=== PATIENT | female | born 1990 | race Hispanic/Latino ===

== ENCOUNTER → 2017-10-25 10:22 | Outpatient (CLI) | payer BC, SELFPAY ==
[2017-10-25 12:03] LABS: Free T3 2.3 pg/mL (2.18-3.98); T4 Free Direct 0.96 ng/dL (0.76-1.46)
[2017-10-25 13:37] LABS: Chlamydia Trachomatis by PCR Negative (Negative); Neisserai gonorrhoeae by PCR Negative (Negative); Probe Check PASS; Sample Adequacy Control PASS; Specimen Processing Control PASS
[2017-10-28 11:39] LABS: HPV Reflexed? NOT INDICATED
== END ==
PROVIDERS: Visit Provider Obstetrics & Gynecology
DX: Z11.3 Encounter for screening for infections with a predominantly sexual mode of transmission (principal); E03.9 Hypothyroidism, unspecified; R39.15 Urgency of urination
CPT/HCPCS: 36415; 84439; 84443; 84481; 87086; 87491; 87591; 88175; G0145

== ENCOUNTER → 2018-12-22 14:30 | Outpatient (CLI) | payer BC, SELFPAY ==
[2016-02-02 03:26] VITALS: BMI 21.4
[2018-12-22 16:08] LABS: Free T3 2.7 pg/mL (2.18-3.98); T4 Free Direct 0.93 ng/dL (0.76-1.46); Thyroid Stim Hormone (TSH) 1.35 uIU/mL (0.358-3.74)
[2018-12-27 13:05] LABS: HPV Reflexed? NOT INDICATED
== END ==
PROVIDERS: Visit Provider Obstetrics & Gynecology
DX: E03.9 Hypothyroidism, unspecified (principal); Z12.4 Encounter for screening for malignant neoplasm of cervix
CPT/HCPCS: 84439; 84443; 84481; 88175; G0145

== ENCOUNTER → 2020-01-02 16:21 | Outpatient (CLI) | payer BC, SELFPAY ==
[2016-02-02 03:26] VITALS: BMI 21.4
[2020-01-02 17:47] LABS: Free T3 2.2 pg/mL (2.18-3.98); Thyroid Stim Hormone (TSH) 1.43 uIU/mL (0.358-3.74)
== END ==
PROVIDERS: Visit Provider Obstetrics & Gynecology
DX: E03.9 Hypothyroidism, unspecified (principal)
CPT/HCPCS: 36415; 84439; 84443; 84481

== ENCOUNTER → 2020-12-31 10:14 | Outpatient (CLI) | payer BC, SELFPAY ==
[2020-12-31 13:45] LABS: Free T3 2.4 pg/mL (2.18-3.98); T4 Free Direct 0.84 ng/dL (0.76-1.46)
== END ==
PROVIDERS: Visit Provider Obstetrics & Gynecology
DX: E03.8 Other specified hypothyroidism (principal); E28.9 Ovarian dysfunction, unspecified
CPT/HCPCS: 36415; 84144; 84439; 84443; 84481

== ENCOUNTER → 2021-02-25 | Outpatient (CLI) | payer BC, SELFPAY | END | disposition home or self-care (01) | LOC: WOBLAB 12:59 | PROVIDERS: Visit Provider Obstetrics & Gynecology | DX: O03.4 Incomplete spontaneous abortion without complication (principal) | CPT/HCPCS: 36415; 86850; 86900; 86901 ==

== ENCOUNTER 2021-12-24 08:38 | Emergency (ER) | payer BC, SELFPAY ==
[2021-12-24 08:39] VITALS: BP 122/52; PULSE 79; RESP 17; TEMP 36.2; O2SAT 97; BMI 27.6
--- NOTE | 2021-12-24 09:30 | CT_ITS ---
STUDY: CT ABDOMEN AND PELVIS WITHOUT CONTRAST REASON FOR EXAM: Female, 31 years old. 3 week history of right lower quadrant and abdominal pain. Nausea. RADIATION DOSAGE (If Supplied By Facility): CTDIvol = ( 7.03 ) mGy, DLP = ( 344.32 ) mGycm TECHNIQUE: Transaxial images were obtained from the dome of the diaphragm to the symphysis pubis without oral contrast, and without intravenous contrast. Sagittal and coronal images were reconstructed. Individualized dose optimization techniques were used for this CT. COMPARISON: None. FINDINGS: The visualized lung bases are unremarkable. The visualized portions of the heart are within normal limits. Normal liver. Normal gallbladder and extrahepatic biliary system. Normal spleen. Normal pancreas. Normal bilateral adrenal glands. Punctate calculus in the upper pole calyx of the right kidney. Normal left kidney. Normal visualized stomach. Normal small intestine. Normal colon. The appendix is visualized and appears normal. Normal abdominal aorta. Normal inferior vena cava. Normal retroperitoneum. Normal urinary bladder. Normal abdominal wall. Normal osseous structures. CT/Abdomen/Pelvis without Cont IMPRESSION: Normal unenhanced CT of the abdomen and pelvis. Electronically Signed: Chad Gunter MD at 10:51 EDT ,
--- NOTE | 2021-12-24 09:30 | ED.VIS.GI ---
HPI HPI - GI History of Present Illness Chief Complaint: Abd Pain Detail of Chief Complaint: Abdominal pain x3 weeks Informant: patient Abdominal Pain/Flank Pain Maximum Severity: 10 Narrative Narrative: Patient presents to the emergency department complaint of abdominal pain for the last 3 weeks. Patient states that she was in [place] 3 weeks ago and developed some bladder discomfort and was seen by a physician there and had a urinalysis and culture which were both negative. Patient continues to have pain and at times wakes up with the urge to urinate. Patient takes ibuprofen and seems to help the pain. Her last menstrual period was 3 days ago. Patient is G2, P0. Patient has had 2 miscarriages. Patient does not think she is . Patient does not have history of kidney stones or ovarian cyst as far she knows. Denies abnormal vaginal discharge or bleeding. Prior similar symptoms: No PFSH PFSH Medical History no medical history Home Medications levothyroxine 25 mcg tablet 37.5 mcg PO DAILY 01/04/16 [History Last Taken Unknown] ondansetron 4 mg disintegrating tablet 4 mg PO Q8H PRN PRN Nausea #10 tabs 02/02/16 [Rx Last Taken Unknown] phenazopyridine 200 mg tablet (Pyridium) 200 mg PO TID #6 tabs 02/02/16 [Rx Last Taken Unknown] sulfamethoxazole 800 mg-trimethoprim 160 mg tablet 1 tab PO BID ##6 02/02/16 [Rx Last Taken Unknown] hydrocodone-acetaminophen 5-325mg 5mg-325mg 1 tab PO Q4H PRN PRN Pain 2 days #10 TABLETS 12/24/21 [Rx Last Taken Unknown] Allergy/AdvReac Type Severity Reaction Status Date / Time No Known Allergies Allergy Verified 12/24/21 08:38 Family History no significant family his Surgical History no surgical history Social History Smoking Status: Never smoker ROS ROS ED Review of Systems ROS Unobtainable: other Constitutional Constitutional ED: Reports lethargy; Denies chills, fever(s), sweats or weight loss Eyes Eyes: Denies blurry vision, change in vision or diplopia ENT ENT ED: Denies rhinorrhea or sore throat Cardiovascular Cardiovascular: Reports racing heartbeat; Denies chest pain, orthopnea or palpitations Respiratory/Chest Respiratory/Chest: Denies cough, dyspnea, dyspnea on exertion, orthopnea or sputum Gastrointestinal Gastrointestinal: Reports abdominal pain and nausea; Denies diarrhea or vomiting Genitourinary Genitourinary ED: Denies dysuria, hematuria or urinary frequency Musculoskeletal Musculoskeletal: Denies arthralgias, back pain, myalgias or neck pain Integumentary Denies abscess, Abrasions or rash Neurologic Neurologic: Denies headache(s) or weakness Psychiatric Psychiatric: Denies anxiety, depression or suicidal thoughts Endocrine Endocrinology: Denies polydipsia, polyphagia or polyuria Hematologic/Lymphatic Hematologic/Lymphatic: Denies easy bleeding, easy bruising or lymphadenopathy Allergic/Immunologic Allergic/Immunologic ED: Denies mouth swelling, tongue swelling or urticaria EXAM Physical Exam Const Vital Signs: 12/24/21 08:39 Temperature 97.1 F L Temperature Source Temporal Pulse Rate 79 Respiratory Rate 17 Blood Pressure 122/52 H Blood Pressure Mean 75 Pulse Ox 97 Oxygen Delivery Method Room Air Positive well nourished and well developed General Appearance ED: well developed and NAD HEENT Reports TM's clear and moist mucous membranes normocephalic and atraumatic; Negative for trauma or tenderness Tympanic Membrane ED: Yes TM's clear Eyes PERRL and EOMs intact bilaterally General Eye ED: Negative for pale conjunctiva or scleral icterus Neck no lymphadenopathy, supple and no JVD General: Negative for tenderness Chest Wall inspection of chest normal and palpation of chest normal Chest: Negative for tenderness Resp normal respiratory effort and clear to auscultation bilaterally Effort and Inspection: Negative for respiratory distress or pain with movement Auscultation: Negative for rhonchi, wheezes or diminished lung sounds Cardio regular rate, regular rhythm, S1 normal heart sound, S2 normal heart sound and no murmurs Peripheral Pulses: pulses 2+ throughout GI normal to inspection, nondistended, normoactive bowel sounds, soft to palpation, non-distended and no masses GI Narrative: Tender to palpation to the right lower quadrant. There are some guarding. There is no rebound, rigidity, or peritoneal signs. No masses palpated. Back/Spine no CVA tenderness and no thoracic nor lumbar tenderness Extremity normal to inspection General Extremety ED: Negative for edema General Extremity: Negative for edema Neuro oriented x3, CN's II-XII intact bilaterally, no sensory deficits noted and gait normal Sensorium / Orientation: awake, alert, oriented to person, oriented to place and oriented to time Motor Exam: strength 5/5 throughout and strength abnormal Psych mental status grossly normal Skin no rashes or lesions noted and no wounds MDM MDM MDM Narrative Medical decision making narrative: IV line established on arrival. Patient did not anything for pain. Lab work-up was normal. hCG was negative. CT flank was essentially normal. At this point etiology of her pain is unclear and she has had it for 3 weeks continuously. My suspicion is extremely low for torsion of the ovaries. I had discussion with patient about obtaining a pelvic ultrasound to evaluate the ovaries and uterus further. Patient states that she has an appointment with [facility] in 2 weeks and does not want to wait to have an ultrasound but would prefer to follow-up with them. I think this is reasonable. I will also give her referral to urology as she has had some urinary related like symptoms. Patient given a prescription for Morgan for pain. She is advised to return if worsening pain, fever, vomiting, or condition worsen anyway. Lab Data Attestation: I reviewed the patient's lab results. Labs: Laboratory Results - last 24 hr 12/24/21 12/24/21 12/24/21 09:38 09:38 09:38 WBC 5.6 RBC 4.29 Hgb 13.2 Hct 39.9 MCV 93.0 MCH 30.8 MCHC 33.1 RDW Std Deviation 44.1 H RDW Coeff of Jennifer 12.9 Plt Count 248 MPV 9.4 Immature Gran % (Auto) 0.700 Neut % (Auto) 63.0 Lymph % (Auto) 27.5 Preston % (Auto) 6.0 Eos % (Auto) 2.1 Baso % (Auto) 0.7 Absolute Neuts (auto) 3.6 Absolute Lymphs (auto) 1.55 Nucleated RBC % 0 Sodium 141 Potassium 4.2 Chloride 109 H Carbon Dioxide 27.0 Anion Gap 5 BUN 8 Creatinine 0.69 Estim Creat Clear Calc 102.01 Est GFR (MDRD) Af Amer 127 Est GFR (MDRD) Non-Af 105 BUN/Creatinine Ratio 11.6 Glucose 82 Calcium 8.6 Total Bilirubin 0.50 AST 23 ALT 39 Alkaline Phosphatase 64 Total Protein 7.2 Albumin 3.5 Globulin 3.7 Albumin/Globulin Ratio 0.9 Serum , Qual NEGATIVE Urine Color Urine Clarity Urine pH Ur Specific [place] Urine Protein Urine Glucose (UA) Urine Ketones Urine Occult Blood Urine Nitrite Urine Bilirubin Urine Urobilinogen Ur Leukocyte Esterase Urine RBC Urine WBC Ur Squamous Epith Cells Urine Bacteria Urine Mucus 12/24/21 09:38 WBC RBC Hgb Hct MCV MCH MCHC RDW Std Deviation RDW Coeff of Jennifer Plt Count MPV Immature Gran % (Auto) Neut % (Auto) Lymph % (Auto) Preston % (Auto) Eos % (Auto) Baso % (Auto) Absolute Neuts (auto) Absolute Lymphs (auto) Nucleated RBC % Sodium Potassium Chloride Carbon Dioxide Anion Gap BUN Creatinine Estim Creat Clear Calc Est GFR (MDRD) Af Amer Est GFR (MDRD) Non-Af BUN/Creatinine Ratio Glucose Calcium Total Bilirubin AST ALT Alkaline Phosphatase Total Protein Albumin Globulin Albumin/Globulin Ratio Serum , Qual Urine Color Yellow Urine Clarity Clear Urine pH 7.0 Ur Specific [place] 1.010 Urine Protein Negative Urine Glucose (UA) Normal Urine Ketones Negative Urine Occult Blood Negative Urine Nitrite Negative Urine Bilirubin Negative Urine Urobilinogen Normal Ur Leukocyte Esterase Negative Urine RBC 0 SEEN Urine WBC 0 SEEN Ur Squamous Epith Cells 0-5 SEEN Urine Bacteria 0 SEEN Urine Mucus 0 SEEN Radiography Diagnostic Testing: Clinical Impression(s) from Imaging Studies Abdomen/Pelvis CT 12/24/21 09:30 IMPRESSION: Normal unenhanced CT of the abdomen and pelvis. Electronically Signed: Chad Gunter MD at 10:51 EDT , Discharge Plan Triage Chief Complaint: Abd Pain ED Provider: Tameka Rapp Dx/Rx/DC Orders Clinical Impression: Abdominal pain Instructions: ED Abdominal Pain Unkn Cause Fem Prescriptions: New hydrocodone-acetaminophen [hydrocodone-acetaminophen] 5-325 mg tablet 1 tab PO Q4H PRN PRN (Reason: Pain) 2 Days Qty: 10 0RF No Action levothyroxine 25 MCG tablet 37.5 mcg PO DAILY phenazopyridine [Pyridium] 200 MG tablet 200 mg PO TID Qty: 6 0RF sulfamethoxazole-trimethoprim 1 TABLET tablet 1 tab PO BID Qty: 6 0RF ondansetron 4 MG tablet 4 mg PO Q8H PRN PRN (Reason: Nausea) Qty: 10 0RF Primary Care Provider: Joseph Neville Referrals: Lee Ann Pimentel MD [Med Staff - Active Staff] - 3-5 Days Joseph Neville MD [Primary Care Provider] - Disposition Disposition: Home, Self Care
[2021-12-24] MEDS: 0.9% Normal Saline 1,000 ML 125 ML IV (09:46)
[2021-12-24 09:51] LABS: Bacteria 0 SEEN /hpf (None Seen); Mucous, Urine 0 SEEN /hpf (<or=2+); Red Blood Cells-Urine 0 SEEN /hpf (0-5); White Blood Cells 0 SEEN /hpf (0-5)
[2021-12-24 09:53] LABS: Absolute Lymphocyte Count 1.55 X10^3/uL (0.83-4.51); Absolute Neutrophil Count 3.6 X10^3/uL (2.0-7.7); Basophil# 0.04 X10^3/uL; Basophil% 0.7 % (0-1); Eosinophil# 0.12 X10^3/uL; Eosinophils% 2.1 % (0-5); Hematocrit 39.9 % (37-47); Hemoglobin 13.2 g/dL (12.0-15.0); Lymphocyte # 1.55 X10^3/ul (0.83-4.51); Lymphocyte % 27.5 % (19-41); Mean Corp Hgb Conc 33.1 g/dL (32-36); Mean Corpuscular Hgb 30.8 pg (27.0-32.0); Mean Platelet Vol. 9.4 fl (6.2-12.0); Monocyte# 0.34 X10^3/uL; NRBC Flagged by Analyzer 0 % (0-5); Neutrophil # 3.55 X10^3/uL (2.7-7.7); Platelet Count 248 K/mm3 (150-450); RBC Distribution Width CV 12.9 % (11.6-14.6); RBC Distribution Width SD 44.1 fl (35.1-43.9); Red Blood Count 4.29 M/mm3 (4.2-5.4); White Blood Count 5.6 K/mm3 (4.4-11.0)
[2021-12-24 09:58] LABS: Color, Urine Yellow (Yellow); Glucose, Dipstick Normal (Normal); Ketone-Dipstick Negative (Negative); Leukocyte Esterase-Dipstick Negative /ul (Negative); Nitrite-Dipstick Negative (Negative); Occult Blood-Urine Negative /ul (Negative); Protein-Dipstick Negative (Negative); Urine Bilirubin Dipstick Negative (Negative); Urine Clarity Clear (Clear); Urine Urobilinogen Normal (Normal)
[2021-12-24 10:10] LABS: ALB/GLOB Ratio 0.9 RATIO (0.9-2.4); AST(SGOT) 23 U/L (15-37); Alanine Aminotransfer ALT/SGPT 39 U/L (13-56); Albumin, Serum 3.5 g/dL (3.2-5.0); Alkaline Phosphatase 64 U/L (45-117); Anion Gap 5 (5-15); BUN 8 mg/dL (7-18); BUN/Creat Ratio 11.6 RATIO (10-20); Calcium,Total 8.6 mg/dL (8.5-10.1); Chloride 109 mmol/L (98-107); Creatinine, Serum 0.69 mg/dL (0.55-1.02); EST Glomerular Filtration Rate 105 mL/min (>60); Est Glom Filt Rate - Afr Amer 127 mL/min (>60); Estimated Creatinine Clearance 102.01 ml/min; Globulin 3.7 g/dL (2.2-4.2); Glucose 82 mg/dL (74-106); Potassium 4.2 mmol/L (3.5-5.1); Protein, Total 7.2 g/dL (6.4-8.2); Sodium Level 141 mmol/L (136-145)
[2021-12-24 10:12] LABS: Squamous Epithelial Cells - UA 0-5 SEEN /hpf (5-10)
[2021-12-24 10:17] LABS: Internal QC Validated? YES +Cl - CLEAR BKGD
[2021-12-24 10:18] LABS: Pregnancy, Serum, hCG Quali. NEGATIVE Negative
[2021-12-24 11:45] VITALS: BP 120/68; PULSE 70; RESP 16; O2SAT 99
== END 2021-12-24 11:46 | disposition home or self-care (01) ==
PROVIDERS: Emergency Provider Emergency Medicine; PCP Family Medicine; Visit Provider Emergency Medicine
DX: R10.9 Unspecified abdominal pain (principal)
CPT/HCPCS: 74176; 80053; 81001; 84703; 85025; 99283; J7030; A4216

== ENCOUNTER → 2022-01-05 | Outpatient (CLI) | payer BC, SELFPAY ==
[2022-01-12 17:28] LABS: HPV APTIMA, High Risk Positive (Negative)
== END | disposition home or self-care (01) ==
LOC: LABSPEC 10:30
PROVIDERS: PCP Family Medicine; Visit Provider Student in an Organized Health Care Education/Training Program
DX: Z12.4 Encounter for screening for malignant neoplasm of cervix (principal)
CPT/HCPCS: 87624; 88175; G0145

== ENCOUNTER → 2022-04-06 | Outpatient (CLI) | payer BC, SELFPAY ==
[2022-04-06 18:29] LABS: Estradiol 240.2 pg/mL; Follicle Stimulating Hormone 2.9 mIU/mL; Luteinizing Hormone 6.5 mIU/mL; Prolactin 21.1 ng/mL; T4 Free Direct 0.87 ng/dL (0.76-1.46); Thyroid Stim Hormone (TSH) 2.88 uIU/mL (0.358-3.74)
== END | disposition home or self-care (01) ==
LOC: WOBLAB 17:25
PROVIDERS: PCP Family Medicine; Visit Provider Student in an Organized Health Care Education/Training Program
DX: N97.9 Female infertility, unspecified (principal)
CPT/HCPCS: 36415; 82670; 83001; 83002; 84146; 84439; 84443

== ENCOUNTER → 2022-04-29 | Outpatient (CLI) | payer BC, SELFPAY ==
--- NOTE | 2022-04-29 18:29 | US_ITS ---
STUDY: ULTRASOUND TRANSVAGINAL CLINICAL: Female, 32 years old. RTO CYST-FOLLOW UP PREV DONE ELSEWHERE TECHNIQUE: Transvaginal with Doppler COMPARISON: None. FINDINGS: Normal uterine size measuring 8.2 x 4.6 x 3.3 cm in maximal craniocaudal dimension. There are no myometrial masses. Normal endometrial thickness measuring 10 mm. There is a hypoechoic cystic structure, measuring 4 x 3 x 2 mm within the fundus just adjacent to the endometrium, image #42 Normal uterine cervix. Normal right ovary, measuring 4.1 x 2.2 x 2.2 cm. There are multiple follicles without a dominant cyst. Normal left ovary, measuring 5.0 x 2.1 x 2.7 cm. There is a visualized 2.3 x 2.0 x 1.8 cm left ovarian cyst with thin flower and through-transmission. There is no visualized internal vascularity. There is no free fluid in the pelvis. Polycystic ovary disease: No. US/Transvaginal Non- IMPRESSION: Benign-appearing left ovarian cyst. Consider follow-up ultrasound in one to 2 menstrual cycles if appropriate. Subtle small 4 x 3 x 2 mm cystic structure just adjacent to the endometrium within the fundus which may represent a small involuted fibroid, versus a small para endometrial cyst. However Recommend correlation with beta hCG. Recommend consideration for follow-up. Electronically Signed: Devika Christy MD at 22:31 EST ,
== END | disposition home or self-care (01) ==
LOC: OPUS 18:28
PROVIDERS: PCP Family Medicine; Visit Provider Student in an Organized Health Care Education/Training Program
DX: N83.291 Other ovarian cyst, right side (principal)
CPT/HCPCS: 76830

== ENCOUNTER → 2022-05-18 | Outpatient (CLI) | payer BC, SELFPAY ==
[2022-05-27 06:08] LABS: HPV Genotype 16, Aptima Negative (Negative)
[2022-05-27 17:18] LABS: HPV APTIMA, High Risk Positive (Negative); HPV Genotype 18,45 Aptima Positive (Negative)
== END | disposition home or self-care (01) ==
LOC: LABSPEC 12:53
PROVIDERS: PCP Family Medicine; Visit Provider Student in an Organized Health Care Education/Training Program
DX: Z12.4 Encounter for screening for malignant neoplasm of cervix (principal)
CPT/HCPCS: 87624; 88175; G0145

== ENCOUNTER → 2022-06-04 | Outpatient (CLI) | payer BC, SELFPAY ==
--- NOTE | 2022-06-04 | CER_PTH ---
PATIENT: CARLOTA DAMIANT #:[id number] LOC: [facility] #:[id number] AGE/SX: 32/F ROOM: RE06/04/[address]: Dr. Isadora Conroy, : 1990 BED: DIS: 06/04/2022 SPEC #: [id number] RECD: 06/04/22 12:04 STATUS: DAWNA DARLINGFransisco #: [id number] MADINA: 06/04/22 00:[address]: Isadora Conroy DEPT: SURGICAL PATHOLOGY RECD BY: Sharmaine Bullock Tissues: A - Uterine cervix, NOS B - Uterine cervix, NOS C - Uterine cervix, NOS Procedures: Surgery Specimen Level IV HEADER OPERATION: Colposcopy and endocervical curettage PRE-OP DIAGNOSIS: Abnormal pap R87.619 TISSUE SUBMITTED: A - Cervix 7 o?clock, B - Cervix 4 o?clock, C - Cervix 11 o?clock, D ? Endocervical curettage MICROSCOPIC DIAGNOSIS A. Cervix at 7 o?clock, biopsy: Benign endocervical tissue. B. Cervix at 4 o?clock, biopsy: Focal HPV change suspected. See comment. C. Cervix at 11 o?clock, biopsy: Focal HPV change present. Squamous metaplasia and mild chronic inflammation. See comment. D. Endocervix, curettings: Rare strips of benign superficial endocervix. AM:magali 06/07/2022 COMMENT B & C. Results from immunohistochemistry ([id number]) for surrogate HPV marker (p16) will be reported separately. Case has been reviewed in consultation with Dr. Lin who concurs with the above diagnosis. IDC:SJ MICROSCOPIC DESCRIPTION Slides are reviewed. GROSS DESCRIPTION A - Received in fixative is one container labeled with the patient's name and designated cervical biopsy 7 o'clock. The specimen consists of one irregular fragment of light rios soft tissue that measures 0.3 x 0.3 x 0.1 cm. The specimen is totally submitted in one cassette. B - Received in fixative is one container labeled with the patient's name and designated cervical biopsy 4 o'clock. The specimen consists of one irregular fragment of light rios soft tissue that measures 0.4 x 0.4 x 0.1 cm. The specimen is totally submitted in one cassette. C - Received in fixative is one container labeled with the patient's name and designated cervical biopsy 11 o'clock. The specimen consists of one irregular fragment of light rios soft tissue that measures 0.5 x 0.4 x 0.1 cm. The specimen is totally submitted in one cassette. D - Received in fixative is one container labeled with the patient's name and designated ECC. The specimen consists of a scant amount of soft tissue. The specimen is totally submitted for cell block preparation. / SJ:rg 06/04/2022 TC: CPT: 41118 x4
--- NOTE | 2022-06-04 | IMM_PTH ---
PATIENT: CARLOTA DAMIAN LOC: [facility] U#:[id number] AGE/SX: 32/F ROOM: RE06/04/[address]: Dr. Isadora Conroy, : 1990 BED: DIS: 06/04/2022 SPEC #: [id number] RECD: 06/07/22 13:27 STATUS: DAWNA REFransisco #: [id number] MADINA: 06/04/22 00:[address]: Isadora Conroy DEPT: IMMUNOHISTOCHEMISTRY RECD BY: Janet Landa Tissues: B - Uterine cervix, NOS C - Uterine cervix, NOS Procedures: p16 (initial) KI-67 (add) PHYSICIAN & INSTITUTION [place] [id number] SPECIMEN INFORMATION: Tissue Source: B ? Cervix 4 o?clock, C ? Cervix 11 o?clock Clinical Info: Abnormal pap Specimen Number: [id number] B & C CPT code: 14187 x2, 92230 x2 METHODOLOGY: Deparaffinized sections of prefer/formalin-fixed tissue or PAP/DQ stained slides are incubated with monoclonal/polyclonal antibodies/oligonucleotide probes. Localization is made via biotin free immunoperoxidase method. Appropriate controls are performed and reacted as expected. Results on target cell population are indicated in the following table: RESULTS: ANTIBODY / CLONE RESULT Block B P16 (E6H4) negative Ki-67 (30-9) negative Block C P16 (E6H4) positive, focal, patchy Ki-67 (30-9) positive, low These tests were developed and their performance characteristics determined by [facility]. They may not have been cleared or approved by the U.S. Food and Drug Administration. The FDA has determined that such clearance or approval is not necessary. The above immunohistochemical/dualISH markers are ordered and reviewed by the Pathologist. INTERPRETATION: B. Cervix at 4 o?clock, biopsy: No evidence of HPV change. C. Cervix at 11 o?clock, biopsy: Focal HPV change present. AM:magali 06/08/2022
== END | disposition home or self-care (01) ==
LOC: LABSPEC 11:54
PROVIDERS: Visit Provider Student in an Organized Health Care Education/Training Program
DX: R87.619 Unspecified abnormal cytological findings in specimens from cervix uteri (principal)
CPT/HCPCS: 88305; 88341; 88342

== ENCOUNTER → 2022-08-17 | Outpatient (CLI) | payer BC, SELFPAY ==
[2022-08-17 16:36] LABS: Absolute Lymphocyte Count 1.87 X10^3/uL (0.83-4.51); Absolute Neutrophil Count 7.4 X10^3/uL (2.0-7.7); Basophil# 0.03 X10^3/uL; Basophil% 0.3 % (0-1); Eosinophil# 0.05 X10^3/uL; Eosinophils% 0.5 % (0-5); Hematocrit 37.7 % (37-47); Hemoglobin 12.2 g/dL (12.0-15.0); Lymphocyte # 1.87 X10^3/ul (0.83-4.51); Lymphocyte % 18.7 % (19-41); Mean Corp Hgb Conc 32.4 g/dL (32-36); Mean Corpuscular Hgb 29.8 pg (27.0-32.0); Mean Platelet Vol. 10.5 fl (6.2-12.0); Monocyte# 0.64 X10^3/uL; Monocyte% 6.4 % (0-10); NRBC Flagged by Analyzer 0 % (0-5); Neutrophil # 7.37 X10^3/uL (2.7-7.7); Neutrophil % 73.6 % (47-70); Platelet Count 273 K/mm3 (150-450); RBC Distribution Width CV 13.1 % (11.6-14.6); RBC Distribution Width SD 44.1 fl (35.1-43.9)
[2022-08-17 17:00] LABS: T4 Free Direct 0.87 ng/dL (0.76-1.46); Thyroid Stim Hormone (TSH) 3.08 uIU/mL (0.358-3.74)
[2022-08-17 17:40] LABS: HIV - WCH Non-Reactive (Nonreactive); Hepatitis B Surface Antigen Non-Reactive (Nonreactive); Hepatitis C Antibody Non-Reactive (Nonreactive); Rubella IgG Reactive (Nonreactive); Syphilis Antibodies Non-reactive
[2022-08-19 05:07] LABS: V-Zoster IgG (Immunity) > 4000 index (Immune >165)
== END | disposition home or self-care (01) ==
PROVIDERS: Visit Provider Student in an Organized Health Care Education/Training Program
DX: Z34.81 Encounter for supervision of other normal pregnancy, first trimester (principal)
CPT/HCPCS: 36415; 84439; 84443; 85025; 86703; 86762; 86780; 86787; 86803; 87086; 87088; 87340

== ENCOUNTER → 2022-11-02 | Outpatient (CLI) | payer BC, SELFPAY ==
[2022-11-02 13:47] LABS: T4 Free Direct 0.89 ng/dL (0.76-1.46)
== END | disposition home or self-care (01) ==
LOC: WOBLAB 11:30
PROVIDERS: Visit Provider Student in an Organized Health Care Education/Training Program
DX: Z13.29 Encounter for screening for other suspected endocrine disorder (principal)
CPT/HCPCS: 36415; 84439; 84443

== ENCOUNTER → 2022-11-29 | Outpatient (CLI) | payer BC, SELFPAY ==
[2022-11-29 09:49] LABS: Hematocrit 35.1 % (37-47); Hemoglobin 11.3 g/dL (12.0-15.0); Mean Corp Hgb Conc 32.2 g/dL (32-36); Mean Corpuscular Volume 93.1 fL (81-99); Mean Platelet Vol. 9.7 fl (6.2-12.0); Platelet Count 235 K/mm3 (150-450); RBC Distribution Width CV 13.9 % (11.6-14.6); RBC Distribution Width SD 47.7 fl (35.1-43.9); Red Blood Count 3.77 M/mm3 (4.2-5.4); White Blood Count 11.7 K/mm3 (4.4-11.0)
[2022-11-29 10:42] LABS: Glucose Challenge Gest 1H 50g 109 mg/dL (70-140); T4 Free Direct 0.75 ng/dL (0.76-1.46); Thyroid Stim Hormone (TSH) 2.87 uIU/mL (0.358-3.74)
== END | disposition home or self-care (01) ==
PROVIDERS: Visit Provider Student in an Organized Health Care Education/Training Program
DX: Z34.82 Encounter for supervision of other normal pregnancy, second trimester (principal)
CPT/HCPCS: 36415; 82950; 84439; 84443; 85027

== ENCOUNTER → 2023-02-25 | Outpatient (CLI) | payer BC, SELFPAY | END | disposition home or self-care (01) | LOC: LABSPEC 17:03 | PROVIDERS: Referring Provider Obstetrics & Gynecology; Visit Provider Obstetrics & Gynecology | DX: Z34.80 Encounter for supervision of other normal pregnancy, unspecified trimester (principal) | CPT/HCPCS: 87081 ==

== ENCOUNTER → 2023-03-09 | Outpatient (CLI) | payer BC, SELFPAY ==
[2023-03-09 13:31] LABS: Free T3 2.5 pg/mL (2.18-3.98); T4 Free Direct 0.75 ng/dL (0.76-1.46); Thyroid Stim Hormone (TSH) 2.44 uIU/mL (0.358-3.74)
== END | disposition home or self-care (01) ==
LOC: LAB 12:27
PROVIDERS: PCP Family Medicine; Referring Provider Registered Nurse; Visit Provider Registered Nurse
DX: E03.9 Hypothyroidism, unspecified (principal)
CPT/HCPCS: 36415; 84439; 84443; 84481

== ENCOUNTER 2023-03-17 13:35 | Inpatient (IN) | payer BC, SELFPAY ==
[2023-03-17] VITALS (53 sets, daily range): BP systolic 98–147; BP diastolic 51–81; PULSE 62–109; TEMP 36.2–36.5; O2SAT 85–100; BMI 36.1
--- OUTSIDE RECORDS SUMMARY | 2023-03-17 14:11 | XMS RPT_ITS | CCD ---
Author Name Unknown Address [address] [place] [address] Organization [facility] Care Team Providers Care Dry Ice Maker Name Role Phone Gregory Neville MD Primary Care Provider Medications Current Medications Medication Drug Class(es) Dates Sig (Normalized) Sig (Original) cyclobenzaprine hydrochloride 10 mg oral tablet (2 sources) Muscle Relaxant Start: 06-10-2021 End: 06-15-2021 take 1 tablet by mouth every eight hours as needed cyclobenzaprine (FLEXERIL) 10 mg tablet Indications: Left arm pain Take 1 tablet by mouth every 8 hours as needed for up to 5 days. 10 tablet 0 06/10/2021 06/15/2021 Active Completed/Discontinued Medications Medication Drug Class(es) Dates Sig (Normalized) Sig (Original) dicyclomine hydrochloride 10 mg oral capsule (1 source) Anticholinergic Start: 02-09-2016 End: 06-10-2021 take 1 capsule by mouth at bedtime dicyclomine (BENTYL) 10 mg capsule Indications: Abdominal bloating Take 1 capsule by mouth before meals and at bedtime. 120 capsule 2 02/09/2016 06/10/2021 Discontinued Problems Problem Classification Problem Date Documented Da te Episodic/Chronic Other complications of (6 sources) ; Translations: [Supervision of with history of infertility, unspecified trimester] Onset: 12-09-2022 12-09-2022 Episodic Other connective tissue disease (1 source) Pain in left arm; Translations: [Pain in left arm] Episodic Other connective tissue disease (2 sources) Shoulder pain; Translations: [Myalgia, other site] Episodic Residual codes; unclassified (3 sources) Other specified personal risk factors, not elsewhere classified; Translations: [Other specified personal history presenting hazards to health] Onset: 12-09-2022 12-09-2022 Episodic Residual codes; unclassified (3 sources) Vegetarian; Translations: [Other specified health status] Onset: 12-09-2022 12-09-2022 Episodic Screening and history of mental health and substance abuse codes (3 sources) H/O: anxiety state; Translations: [Personal history of other mental and behavioral disorders] Onset: 12-09-2022 12-09-2022 Episodic Thyroid disorders (13 sources) Acquired hypothyroidism; Translations: [Hypothyroidism, unspecified] Onset: 12-24-2015 12-24-2015 Chronic Results Test Name Value Interpretation Reference Range Facil ity Vital Signs Date Time Vital Sign Value Performing Clinician Manuel archer 06-10-2021 15:59-0400 Body height 162.6 cm Carmen Gay APRN.CNP Work Phone: [facility] 06-10-2021 15:59-0400 Body temperature 98.29 [degF] Carmen Gay APRN.MEDICAL DATA ANALYST Work Phone: [facility] 06-10-2021 15:59-0400 Body weight 68.63 kg Carmen Gay APRN.CNP Work Phone: [facility] 06-10-2021 15:59-0400 Diastolic blood pressure 70 mm[Hg] Carmen Gay APRN.MEDICAL DATA ANALYST Work Phone: [facility] 06-10-2021 15:59-0400 Heart rate 80 /min Carmen Gay APRN.MEDICAL DATA ANALYST Work Phone: [facility] 06-10-2021 15:59-0400 SaO2% (BldA) [Mass fraction] 98 % Carmen Gay BUDGET CLERK.MEDICAL DATA ANALYST Work Phone: [facility] 06-10-2021 15:59-0400 Systolic blood pressure 115 mm[Hg] Carmen Gay APRNJustinMEDICAL DATA ANALYST Work Phone: [facility] Encounters Encounter Date Encounter Type Care Provider Facility Start: 12-16-2022 Telephone encounter Tammy Cesar MD Work Phone: OB/Gynecology Procedures Date Procedure Procedure Detail Performing Clinician Start: 01-28-2017 Adult depression screening assessment Carmen Gay APRN.CNP Work Phone: Plan of Treatment Date Care Activity Detail Author Start: 01-28-2027 Urine microalbumin profile [facility] Start: 01-05-2027 HPV TESTING HPV TESTING [facility] Start: 01-05-2027 PAP TESTING PAP TESTING [facility] Start: 11-19-2022 Influenza vaccination [facility] Start: 06-10-2022 ANNUAL PCP TEAM CHRONIC DISEASE VISIT ANNUAL PCP TEAM CHRONIC DISEASE VISIT [facility] Start: 03-21-2022 DEPRESSION ASSESSMENT DEPRESSION ASSESSMENT [facility] Start: 11-19-2021 Influenza vaccination INFLUENZA (#1) [facility] Start: 06-01-2021 COVID-19 VACCINE (4 - Booster for Pfizer series) COVID-19 VACCINE (4 - Booster for Pfizer series) [facility] Start: 06-01-2021 COVID-19 VACCINE (4 - Pfizer series) COVID-19 VACCINE (4 - Pfizer series) [facility] Start: 03-21-2021 DEPRESSION ASSESSMENT DEPRESSION ASSESSMENT [facility] Start: 11-19-2020 Influenza vaccination INFLUENZA (#1) [facility] Start: 2020 HPV TESTING HPV TESTING [facility] Start: 01-28-2018 Adult depression screening assessment DEPRESSION SCREENING [facility] Start: 01-28-2018 ANNUAL PCP TEAM CHRONIC DISEASE VISIT ANNUAL PCP TEAM CHRONIC DISEASE VISIT [facility] Start: 2011 PAP TESTING PAP TESTING [facility] Start: 2008 HEPATITIS C SCREENING HEPATITIS C SCREENING [facility] Start: 2008 HIV SCREENING HIV SCREENING [facility] Start: 1990 HEPATITIS B (1 of 3 - 3-dose series) HEPATITIS B (1 of 3 - 3-dose series) [facility] Start: 1990 Hepatitis B Vaccine (1 of 3 - 3-dose series) Hepatitis B Vaccine (1 of 3 - 3-dose series) [facility] End: 07-18-2022 XR SHOULDER GENERAL 3V OR MORE AP/TRUE AP/OTHER LEFT XR SHOULDER GENERAL 3V OR MORE AP/TRUE AP/OTHER LEFT Radiology Routine Left shoulder pain, unspecified chronicity 1 Occurrences starting 06/18/2021 until 07/18/2022 [facility] Work Phone: Immunizations Immunization Date Immunization Notes Care Provider Fa cility 01-28-2017 influenza, injectabl e, quadrivalent, contains preservative Carmen Victor Hugo BUDGET CLERK.MEDICAL DATA ANALYST Work Phone: [facility] 01-28-2017 tetanus toxoid, redu vibha diphtheria toxoid, and acellular pertussis vaccine, adsorbed Carmen Victor Hugo BUDGET CLERK.MEDICAL DATA ANALYST Work Phone: [facility] 01-28-2017 influenza virus vacc ine, unspecified formulation Nurse Wstr Work Phone: [facility] 12-24-2015 influenza, injectabl e, quadrivalent, contains preservative Carmen Victor Hugo BUDGET CLERK.MEDICAL DATA ANALYST Work Phone: [facility] Payers Date Payer Category Payer Unknown [employer] PPO OOS [id number] 2015-Present [phone] [id number] [place] [address] PPO [id number] 2015 Unknown [employer] PPO OOS [id number] 2015-Present [phone] [address] [place] [address] PPO [id number] 2015 Unknown [id number] Social History Date Type Detail Facility Start: 12-24-2015 End: 09-30-2017 Tobacco smoking status LAIS Never smoked tobacco [facility] Start: 12-24-2015 End: 09-30-2017 Tobacco use and exposure Smokeless tobacco non-user [facility] Start: 06-10-2021 Alcohol intake Current drinke r of alcohol (finding) [facility] Start: 12-24-2015 History SDOH Alcohol Comment rare [facility] Start: 1990 Sex Assigned At Not on file [facility] Start: 05-31-2021 End: 06-10-2021 Exposure to SARS-CoV-2 (event) Not sure [facility] Start: 06-10-2021 End: 12-09-2022 History of Social function [facility] Start: 06-10-2021 End: 12-09-2022 Tobacco use panel [facility] National Score (1-10 0), lower number is lower risk Not on file [facility] Start: 12-09-2022 End: 12-16-2022 Alcohol intake Ex-drinker (finding) [facility] Start: 12-09-2022 Education 17 [facility] Start: 06-24-2022 [facility] Clinical Notes 06-10-2021 to 12-16-2022 Telephone Encounter - Lakeisha Raphael RN - 12/16/2022 2:12 PM EDTPrenatal Quick Notes - Huma Diggs RN - 12/09/2022 2:01 PM EDTHuma Diggs RN - 12/09/2022 12:59 PM EDTPatient Instructions Note Date & Type Note Facility 12-16-2022 Miscellaneous Notes Patient called to cancel her upcoming appointment. Transferring care to [facility]. episode closed. Patient was only seen for PNOB. Lakeisha Raphael RN documented in this encounter [facility] 12-09-2022 Note HNO ID: [id number] Author: Huma Diggs RN Service: ? Author Type: ? Type: Progress Notes Filed: 12/09/2022 2:12 PM Note Text: INITIAL OB ASSESSMENT OB Provider: Huma Diggs RN HPI: Carlota is a 32 year old White here to establish Obstetrical Care. Patient's last menstrual period was 06/10/2022 (exact date). from OB Dating Form. Cycles regular was planned Complaints: None OB History T0 L0 SAB2 IAB0 Ectopic0 Multiple0 Live Births0 # 1 - Date: 2011, Sex: None, Weight: None, GA: None, Delivery: MISSED AB, Apgar1: None, Apgar5: None, Living: None, Comments: No DANDC # 2 - Date: 2015, Sex: None, Weight: None, GA: None, Delivery: MISSED AB, Apgar1: None, Apgar5: None, Living: None, Comments: DANDC # 3 - Date: None, Sex: None, Weight: None, GA: None, Delivery: None, Apgar1: None, Apgar5: None, Living: None, Comments: None Previous history: Prior : never History of 4th degree laceration: No History of shoulder dystocia: No History of Hypertensive disorders including pre-eclampsia, chronic hypertension or gestational hypertension: No History of gestational diabetes: No Patient's Risk Screening for delivery: Have you had a prior ceballos between 20w and 36w6d?: No MEDICAL/PSYCHOSOCIAL HISTORY: History of hemorrhage or bleeding concerns: No Thyroid Disease: Yes History of chronic hypertension: No History of pre-existing diabetes: No No results found for: ABORHD No weight on file for this encounter. History of abnormal pap: No Prior treatment for cervical dysplasia: none. 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 I don't have enough money to pay my bills: Rarely Within the past 12 months, have you worried that your food would run out before you had money to buy more: Never In the past 12 months, has lack of reliable transportation kept you from going to medical appointments or work, or from keeping things needed for daily living: Never In the past 12 months, have you had any concerns about having a place to live, or about the condition or quality of your housing: Never Are there any cultural or spiritual needs we should be aware of: No Depression/Anxiety Screening: denies symptoms of depression. OB Depression and Anxiety Screening- This Encounter (since 12/08/2022) Over the past 2 weeks have you felt down, depressed, or hopeless? Negative Over the past two weeks, have you felt little interest or pleasure in doing things?? Negative Feeling nervous, anxious or on edge 0-Not at all Not being able to stop or control worrying 0-Not al all Anxiety Pre-Screening Total (If >/= 3 additional questions will be reviewed) 0 Genetic Screening: Partner present: No Patient verbalized knowledge of partner family health history: Yes Do you or your partner have any personal or family history of defects not previously discussed: No Do you have history of a complicated by anomaly, genetic condition, or demise: No ACOG Recommended Screening Screening for early gestational diabetes testing: Criteria for early testing requires elevated BMI plus one other risk factor: No weight on file for this encounter. 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 mecobalamin (B12 ACTIVE ORAL) Take by mouth. levothyroxine (SYNTHROID) 25 mcg tablet Take 25 mcg by mouth. 37.5mcg No current facility-administered medications for this visit. Allergies As of Date: 12/09/2022 (No Known Allergies) Fully Assessed 12/09/2022 Does patient have penicillin allergy: No [facility] 12-09-2022 Miscellaneous Notes DISTANCE HEALTH VISIT This Team Access Model visit is a phone encounter. It required patient-provider interaction for the medical decision making as documented below. I have communicated my name and active licensure. The patient's identity and physical location were verified at the time of this visit. Patient is transferring care from [facility]. Her records have been received and are sent to Dr. Cesar's office for review. She is 26 weeks today. I provided contact information for childbirth classes at [facility] and a referral to [facility] nut tightener given. Patient states she is from [place] and speaks Georgian as her first language. She speaks Cook Islander well. I have advised her that if she is in need of a project account manager at any time during any of her visits 1 will be provided to her. She declined an pillowcase turner today. She and her have been attempting for 2 years. This is a Clomid . Patient has a history of hypothyroidism for the past 12 years. She has been treated by Dr. Neville and Dr. Conroy in the past. Last thyroid labs were drawn November 29, 2022. Patient has a history of anxiety. Denies ever having depression.Huma Diggs RN BSN documented in this encounter [facility] 12-09-2022 History of Presen t illness Narrative INITIAL OB ASSESSMENT OB Provider: Huma Diggs RN HPI: Carlota is a 32 year old White here to establish Obstetrical Care. Patient's last menstrual period was 06/10/2022 (exact date). from OB Dating Form. Cycles regular was planned Complaints: None OB History T0 L0 SAB2 IAB0 Ectopic0 Multiple0 Live Births0 # 1 - Date: 2011, Sex: None, Weight: None, GA: None, Delivery: MISSED AB, Apgar1: None, Apgar5: None, Living: None, Comments: No D&C # 2 - Date: 2015, Sex: None, Weight: None, GA: None, Delivery: MISSED AB, Apgar1: None, Apgar5: None, Living: None, Comments: D&C # 3 - Date: None, Sex: None, Weight: None, GA: None, Delivery: None, Apgar1: None, Apgar5: None, Living: None, Comments: None Previous history: Prior : never History of 4th degree laceration: No History of shoulder dystocia: No History of Hypertensive disorders including pre-eclampsia, chronic hypertension or gestational hypertension: No History of gestational diabetes: No Patient's Risk Screening for delivery: Have you had a prior ceballos between 20w and 36w6d?: No MEDICAL/PSYCHOSOCIAL HISTORY: History of hemorrhage or bleeding concerns: No Thyroid Disease: Yes History of chronic hypertension: No History of pre-existing diabetes: No No results found for: ABORHD No weight on file for this encounter. History of abnormal pap: No Prior treatment for cervical dysplasia: none. 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 I don't have enough money to pay my bills: Rarely Within the past 12 months, have you worried that your food would run out before you had money to buy more: Never In the past 12 months, has lack of reliable transportation kept you from going to medical appointments or work, or from keeping things needed for daily living: Never In the past 12 months, have you had any concerns about having a place to live, or about the condition or quality of your housing: Never Are there any cultural or spiritual needs we should be aware of: No Depression/Anxiety Screening: denies symptoms of depression. OB Depression and Anxiety Screening- This Encounter (since 12/08/2022) Over the past 2 weeks have you felt down, depressed, or hopeless? Negative Over the past two weeks, have you felt little interest or pleasure in doing things? Negative Feeling nervous, anxious or on edge 0-Not at all Not being able to stop or control worrying 0-Not al all Anxiety Pre-Screening Total (If >/= 3 additional questions will be reviewed) 0 Genetic Screening: Partner present: No Patient verbalized knowledge of partner family health history: Yes Do you or your partner have any personal or family history of defects not previously discussed: No Do you have history of a complicated by anomaly, genetic condition, or demise: No ACOG Recommended Screening Screening for early gestational diabetes testing: Criteria for early testing requires elevated BMI plus one other risk factor: No weight on file for this encounter. 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 mecobalamin (B12 ACTIVE ORAL) Take by mouth. levothyroxine (SYNTHROID) 25 mcg tablet Take 25 mcg by mouth. 37.5mcg No current facility-administered medications for this visit. Allergies As of Date: 12/09/2022 (No Known Allergies) Fully Assessed 12/09/2022 Does patient have penicillin allergy: No documented in this encounter [facility] 11-24-2022 Miscellaneous Notes Scheduled for 12/15. Patient notified. Lakeisha Raphael RN Attempted to reach patient to offer her a sooner NOB with DM. She has a NOB on 12/29. No answer and unable to leave a voicemail. Ok to use 20 min on 12/15 per DM. Lakeisha Raphael RN documented in this encounter [facility] 11-15-2022 Miscellaneous Notes PNOB and NOB with DM scheduled. Her last visit with [facility] is 12/06. She will have them fax records after that appointment. She is aware that we need those in time for her PNOB visit. Kristyn Trevino RN Attempted to leave message for patient to return phone call but mailbox if full. Unable to leave message. PRS: Please attempt to call patient back Name and verified. Patient wishes to transfer to [facility] for OB care. ORTIZ? 03/17/2023 What facility is she transferring from? Dr. Eun Cullenoster When was her last office visit with the current facility? Patient will see her once more in 3 weeks Any medical concerns that affect the ? No Which office/provider would the patient like to establish in? [facility] Will route this encounter to the desired office. ----- Message from Rosa Elena Arevalork sent at 11/10/2022 12:37 PM EDT ----- PT IS LOOKING TO GET SCHEDULED WITH OB CURRENT OB IS LEAVING THE PRACTICE SHE GOES TO NOW PT IS 21WKS TODAY 11/10/2022 documented in this encounter [facility] 04-30-2022 Miscellaneous Notes Received 04/30/2022 from [facility]. Placed in provider's inbox for review. Route to [place] for scanning documented in this encounter [facility] 01-13-2022 Miscellaneous Notes Received positive hpv results from pap smear from [facility]. Placed in provider's inbox for review. Route to [place] scanning. documented in this encounter [facility] 12-28-2021 Miscellaneous Notes Received 12/26/2021 from [facility]. Placed in provider's inbox for review. Route to [place] for scanning. documented in this encounter [facility] 12-24-[address] abdomen and pelvis without contrast report for rlq and abd pain from [facility]. Placed in provider's inbox for review. Route to [place] scanning. documented in this encounter [facility] 06-11-2021 Miscellaneous Notes Patient is scheduled. Addended by: CARMEN GAY on: 06/11/2021 04:59 PM Modules accepted: Orders Ortho consult placed. Please assist in scheduling. Spoke to patient who was advised of provider's message and verbalized understanding. Patient is requesting consult to orthopedic shoulder specialist. Declined to be scheduled at this time with primary care. Please advise when consult is placed so she can schedule. She has only been on the medication for 1 day, she should give it time to work. She should also try the stretching, ice and heat as well as anti-inflammatories like we discussed. I see she has an appt with Physical therapy, which would be the next step. She should try this and give it some time. She also needs to schedule with Dr. Neville, if that's the pcp she is going to continue with, for follow up. I will send a work note to her my chart. Patient was seen by Carmen Gay yesterday for arm pain. She states the medicine that was prescribed is not helping with her pain. She would like a more thorough work up possibly by a specialist. She also stated that she could not go to work today due to her arm pain, so she would like a note excusing her from work. Please discuss with the patient. Thank you. documented in this encounter [facility] 06-10-2021 Instructions Carmen Gay APRN.MARGOT - 06/10/2021 4:34 PM EDT Do NOT operate heavy machinery while taking the muscle relaxer. documented in this encounter [facility] 06-10-2021 History of Presen t illness Narrative Images from the original note were not included. This note was created using [employer]. Subjective Carlota Damian is a 31 year old female. Patient presents with: Arm Pain: left x 2 weeks Pt here c/o left arm pain for 2 weeks. Was seen in urgent care on 05/27/21 and was given prednisone. Pt states the steroid helped but pain came back this past Tuesday. No known trauma States this arm pain makes it hard to sleep. States the pain is stabbing and constant and radiates from her elbow into her shoulder and left upper back. The most painful area is the anterior deltoid muscle. No new exercise. Pt states her arm sometimes ferraro and she has been favoring her left arm. Uses her right for everything and states it hurts to lift anything or to move her left arm. Denies rash or swelling Denies chest pain, heart palpitations or syncope. States left deltoid is tender to touch. Pain is worse at night. Tried ibuprofen today, with some relief. Has not tried heat or ice. Some numbness, tingling and cold feeling in left hand. The history is provided by the patient. No relief cook was used. Review of Systems Constitutional: Negative for activity change, appetite change, chills, diaphoresis, fatigue, fever and unexpected weight change. HENT: Negative. Eyes: Negative for visual disturbance. Respiratory: Negative for cough, chest tightness, shortness of breath and wheezing. Cardiovascular: Negative for chest pain, palpitations and leg swelling. Gastrointestinal: Negative for abdominal pain, blood in stool, constipation, diarrhea, nausea, rectal pain and vomiting. Genitourinary: Negative for difficulty urinating, dysuria, flank pain, frequency and urgency. Musculoskeletal: Positive for myalgias. Negative for arthralgias, back pain, gait problem, joint swelling, neck pain and neck stiffness. Skin: Negative for pallor and rash. Neurological: Negative for dizziness, seizures, speech difficulty, weakness, light-headedness, numbness and headaches. Psychiatric/Behavioral: Negative for dysphoric mood, self-injury, sleep disturbance and suicidal ideas. The patient is not nervous/anxious. All other systems reviewed and are negative. Objective BP 115/70 Pulse 80 Temp 36.8 C (98.3 F) (Tympanic) Ht 162.6 cm (5' 4 ) Wt 68.6 kg (151 lb 4.8 oz) LMP 06/01/2021 (Exact Date) SpO2 98% BMI 25.97 kg/m PAST MEDICAL HISTORY Diagnosis Date Hypothyroidism History reviewed. No pertinent surgical history. Current Outpatient Medications on File Prior to Visit Medication Sig levothyroxine (SYNTHROID) 25 mcg tablet Take by mouth. miSOPROStol (CYTOTEC) 200 mcg tablet NEEDED 4 TABS BUCCALLY EVERY 12 HOURS NEEDED (Patient not taking: Reported on 06/10/2021) LACTOBACILLUS ACIDOPHILUS (ACIDOPHILUS ORAL) Take by mouth. (Patient not taking: Reported on 05/27/2021 ) MEDICATION, NON-DATABASE Take 1 tablet by mouth once daily. Tamisa- control (Patient not taking: Reported on 05/27/2021 ) dicyclomine (BENTYL) 10 mg capsule Take 1 capsule by mouth before meals and at bedtime. (Patient not taking: Reported on 09/30/2017 ) GLUCOSAMINE HCL AND SULFATE (GLUCOSAMINE COMPLEX ORAL) Take by mouth. (Patient not taking: Reported on 05/27/2021 ) No current facility-administered medications on file prior to visit. ALLERGIES No Known Allergies Physical Exam Vitals reviewed. Constitutional: General: She is awake. She is not in acute distress. Appearance: Normal appearance. She is well-developed, well-groomed and normal weight. HENT: Head: Normocephalic. Eyes: Conjunctiva/sclera: Conjunctivae normal. Pupils: Pupils are equal, round, and reactive to light. Cardiovascular: Rate and Rhythm: Normal rate and regular rhythm. Pulses: Normal pulses. Heart sounds: Normal heart sounds. Pulmonary: Effort: Pulmonary effort is normal. No respiratory distress. Breath sounds: Normal breath sounds. No decreased breath sounds or wheezing. Musculoskeletal: General: No swelling, deformity or signs of injury. Right shoulder: Normal. Left shoulder: Tenderness present. No swelling, deformity, laceration or bony tenderness. Decreased range of motion. Decreased strength. Right upper arm: Normal. Left upper arm: Tenderness present. No swelling, edema, deformity, lacerations or bony tenderness. Arms: Cervical back: Full passive range of motion without pain, normal range of motion and neck supple. No muscular tenderness. Right lower leg: No edema. Left lower leg: No edema. Lymphadenopathy: Cervical: No cervical adenopathy. Skin: General: Skin is warm. Capillary Refill: Capillary refill takes less than 2 seconds. Findings: No rash. Neurological: General: No focal deficit present. Mental Status: She is alert and oriented to person, place, and time. Mental status is at baseline. Cranial Nerves: Cranial nerves are intact. No cranial nerve deficit. Sensory: Sensation is intact. No sensory deficit. Motor: Motor function is intact. No weakness. Coordination: Coordination is intact. Gait: Gait is intact. Gait normal. Psychiatric: Attention and Perception: Attention and perception normal. Mood and Affect: Mood and affect normal. Speech: Speech normal. Behavior: Behavior normal. Behavior is cooperative. Thought Content: Thought content normal. Thought content does not include homicidal or suicidal ideation. Cognition and Memory: Cognition and memory normal. Judgment: Judgment normal. ASSESSMENT/PLAN: 1. Left arm pain - ICD9: 729.5, ICD10: M79.602 - likely muscular due to ttp on anterior deltoid. - try stretching and using heat/ice. - numbness and tingling in left hand due to inflammatory process and lack of movement of left arm. - CYCLOBENZAPRINE 10 MG TABLET- discussed use and side effects. Do not operate heavy machinery while on medication. Pt VU. - CONSULT TO PHYSICAL THERAPY- will make appt with PT if pain continues Follow up as needed or sooner if new or worsening symptoms. Carmen Gay APRN.MEDICAL DATA ANALYST documented in this encounter [facility] Pain of left deltoid- Primary [facility] Diagnosis Left shoulder pain, unspecified chronicity- Primary [facility]* Diagnosis with care elsewhere, antepartum- Primary At increased risk for language barrier associated with use of clomiphene, antepartum Acquired hypothyroidism Unspecified hypothyroidism History of anxiety Personal history of other mental disorder Vegetarian diet Other specified conditions influencing health status [facility] Diagnostic Procedure Only (Routine) - Pending Review Specialty Diagnoses / Procedures Referred By Fanta mendez Referred To Contact XR IMAGING Diagnoses Left shoulder pain, unspecified chronicity Procedures XR SHOULDER GENERAL 3V OR MORE AP/TRUE AP/OTHER LEFT RADEX SHOULDER COMPLETE MINIMUM 2 VIEWS Chris Erazo MD [address] [place] [address] Xr Imaging Referral ID Status Reason Start Date Expiration Date Visits Requested Visits Authorized [id number] Pending Review Auto-Generat ed Referral 06/18/2021 07/18/2022 1 1 [facility] Reason for Referral Specialty Diagnoses / Procedures Referred By Fanta mendez Referred To Contact [facility] Diagnoses Left arm pain Procedures CONSULT TO PHYSICAL THERAPY PHYSICAL THERAPY EVALUATION HIGH COMPLEX 45 MINS Carmen Gay APRN.MEDICAL DATA ANALYST [address] [place] [address] [facility] [address] [place] [address] Referral ID Status Reason Start Date Expiration Date Visits Requested Visits Authorized [id number] Pending Review Auto-Generat ed Referral 06/10/2021 06/10/2022 1 1 Specialty Diagnoses / Procedures Referred By Fanta t Referred To Contact Orthopedics Diagnoses Pain of left deltoid Procedures CONSULT TO ORTHOPAEDICS OFFICE/OUTPATIENT NEW HIGH MDM 60-74 MINUTES Carmen Gay APRN.CNP [address] [place] [address] Referral ID Status Reason Start Date Expiration Date Visits Requested Visits Authorized [id number] Authorized PCP Requested Referral 06/11/2021 06/11/2022 1 1 Summary Purpose Family History No Family History Records Found Advance Directives No Advanced Directives Records Found Additional Source Comments Source Comments (unrecognize d section and content) In the event this informatio n is protected by the Federal Confidentiality of Alcohol and Drug Abuse Patient Records regulations: The Federal rules restrict any use of the information to criminally investigate or prosecute any alcohol or drug abuse patient.[facility] the event this information is protected by the Federal Confidentiality of Alcohol and Drug Abuse Patient Records regulations: The Federal rules restrict any use of the information to criminally investigate or prosecute any alcohol or drug abuse patient.[facility] the event this information is protected by the Federal Confidentiality of Alcohol and Drug Abuse Patient Records regulations: The Federal rules restrict any use of the information to criminally investigate or prosecute any alcohol or drug abuse patient.[facility] the event this information is protected by the Federal Confidentiality of Alcohol and Drug Abuse Patient Records regulations: The Federal rules restrict any use of the information to criminally investigate or prosecute any alcohol or drug abuse patient.[facility] the event this information is protected by the Federal Confidentiality of Alcohol and Drug Abuse Patient Records regulations: The Federal rules restrict any use of the information to criminally investigate or prosecute any alcohol or drug abuse patient.[facility] the event this information is protected by the Federal Confidentiality of Alcohol and Drug Abuse Patient Records regulations: The Federal rules restrict any use of the information to criminally investigate or prosecute any alcohol or drug abuse patient.[facility] the event this information is protected by the Federal Confidentiality of Alcohol and Drug Abuse Patient Records regulations: The Federal rules restrict any use of the information to criminally investigate or prosecute any alcohol or drug abuse patient.[facility] the event this information is protected by the Federal Confidentiality of Alcohol and Drug Abuse Patient Records regulations: The Federal rules restrict any use of the information to criminally investigate or prosecute any alcohol or drug abuse patient.[facility] the event this information is protected by the Federal Confidentiality of Alcohol and Drug Abuse Patient Records regulations: The Federal rules restrict any use of the information to criminally investigate or prosecute any alcohol or drug abuse patient.[facility] the event this information is protected by the Federal Confidentiality of Alcohol and Drug Abuse Patient Records regulations: The Federal rules restrict any use of the information to criminally investigate or prosecute any alcohol or drug abuse patient.[facility] the event this information is protected by the Federal Confidentiality of Alcohol and Drug Abuse Patient Records regulations: The Federal rules restrict any use of the information to criminally investigate or prosecute any alcohol or drug abuse patient.[facility] System[facility] the event this information is protected by the Federal Confidentiality of Alcohol and Drug Abuse Patient Records regulations: The Federal rules restrict any use of the information to criminally investigate or prosecute any alcohol or drug abuse patient.[facility] Reason for Visit (unrecogniz ed section and content) Reason Comments Patient Question Reason Comments Received Outside Medical Records CT abdo men [facility] Reason Comments Received Outside Medical Records [facility] Health ER summary 12/24/2021 Reason Comments Outside Lab Results HPV, [facility] Reason Comments Received Outside Medical Records [facility] Transvaginal Ultrasound 04/29/2022 Reason Comments Opened In Error Reason Comments 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 - Other Reason Comments Future Appointment NOB Reason Comments Care Reason Comments Patient Update Care Teams (unrecognized sec tion and content) Dry Ice Maker Relationship Specialty Start Date End Date Gregory Neville MD [address] [place], [place] [id number] PCP - General Family Practice 02/06/16 Dry Ice Maker Relationship Specialty Start Date End Date Gregory Neville MD [address] [place], [place] [address] PCP - General Family Practice 02/06/16 Dry Ice Maker Relationship Specialty Start Date End Date Gregory Neville MD [address] [place], [place] [id number] PCP - General Family Medicine 02/06/16 Dry Ice Maker Relationship Specialty Start Date End Date Gregory Neville MD [address] [place], [place] [id number] PCP - General Family Medicine 02/06/16 Dry Ice Maker Relationship Specialty Start Date End Date Gregory Neville MD [address] [facility] [place] [address] PCP - General Family Medicine 02/06/16 Dry Ice Maker Relationship Specialty Start Date End Date Gregory Neville MD [address] [facility] [place], [place] [id number] PCP - General [facility] 02/06/16 Dry Ice Maker Relationship Specialty Start Date End Date Gregory Neville MD [address] [facility] [place], [place] [id number] PCP - [facility] 02/06/16 Dry Ice Maker Relationship Specialty Start Date End Date Gregory Neville MD [address] [facility] [place], [place] [id number] PCP - General Family Medicine 02/06/16 INFORMATION SOURCE (unrecogn ized section and content) FOR RECORDS PERTAINING TO PATIENTS WHO ARE OR HAVE BEEN ENROLLED IN A CHEMICAL DEPENDENCY/SUBSTANCEABUSE PROGRAM, SOME INFORMATION MAY BE OMITTED. This clinical summary was aggregated from multiple sources. Caution should be exercised in using it in the provision of clinical care. This summary normalizes information from multiple sources, and as a consequence, information in this document may materially change the coding, format and clinical context of patient data. In addition, data may be omitted in some cases. CLINICAL DECISIONS SHOULD BE BASED ON THE PRIMARY CLINICAL RECORDS. [employer] [facility]. provides no warranty or guarantee of the accuracy or completeness of information in this document.
[2023-03-17 14:31] LABS: Absolute Lymphocyte Count 1.25 X10^3/uL (0.83-4.51); Absolute Neutrophil Count 7.3 X10^3/uL (2.0-7.7); Basophil# 0.03 X10^3/uL; Basophil% 0.3 % (0-1); Eosinophil# 0.05 X10^3/uL; Eosinophils% 0.5 % (0-5); Hematocrit 36.4 % (37-47); Hemoglobin 11.8 g/dL (12.0-15.0); Lymphocyte # 1.25 X10^3/ul (0.83-4.51); Lymphocyte % 13.3 % (19-41); Mean Corp Hgb Conc 32.4 g/dL (32-36); Mean Corpuscular Hgb 29.9 pg (27.0-32.0); Mean Corpuscular Volume 92.4 fL (81-99); Mean Platelet Vol. 9.5 fl (6.2-12.0); Monocyte# 0.57 X10^3/uL; Monocyte% 6.1 % (0-10); NRBC Flagged by Analyzer 0 % (0-5); Neutrophil # 7.34 X10^3/uL (2.7-7.7); Neutrophil % 77.9 % (47-70); Platelet Count 249 K/mm3 (150-450); RBC Distribution Width CV 14.6 % (11.6-14.6); RBC Distribution Width SD 49.1 fl (35.1-43.9); Red Blood Count 3.94 M/mm3 (4.2-5.4); White Blood Count 9.4 K/mm3 (4.4-11.0)
[2023-03-17] MEDS: Lactated Ringers 1,000 ML 50 ML IV (14:44)
[2023-03-17] MEDS: Oxytocin 15 Units/NS 250ml 15 UNITS/250 ML IV.SOLN 2 UNITS IV (14:56)
[2023-03-17 15:11] LABS: Syphilis Antibodies Non-reactive
[2023-03-17] MEDS: 0.9% Normal Saline Single 100 ML IV.SOLN. INTRA-UTER (17:45)
[2023-03-17] MEDS: LACTATED RINGERS 500 ML 999 ML IV ×2 (19:10→20:30)
[2023-03-17] MEDS: fentaNYL-bupivacaine (epidural) 100 ML BAG EPIDURAL (19:59)
--- NOTE | 2023-03-17 21:28 | HP.PCM.OB_ITS ---
HPI - General General Date of Admission: 03/17/23 HPI Narrative CARLOTA DAMIAN, is a 32 F who presents for IOL secondary to persistent Decreased movement, last week and this week, and variable in the office today. no vb lof no regular ctx Maternal Data Information ORTIZ Calculator Estimated Delivery Date Method Current WG Current Estimate 03/17/23 LMP (Certain) 40w 0d PFSH PFSH Medical History Hypothyroidism Home Medications levothyroxine 25 mcg tablet 37.5 mcg PO DAILY hypothyroidism 01/04/16 [History Last Taken 03/17/23 07:00] Allergy/AdvReac Type Severity Reaction Status Date / Time No Known Allergies Allergy Verified 03/17/23 11:06 Family History Father Cancer Skin Seizures Hypertension Social History household members: spouse housing: house current occupational status: employed current occupation: [employer] Smoking Status: Never smoker alcohol intake: never substance use type: does not use seatbelt use: always do you feel safe at home: Yes additional social history: -Aaron- Shaeffler History 3 Elective abortions Hx Para 0 Spontaneous abortions Hx # Term Pregnancies Ectopic pregnancies Hx # Pregnancies Multiple births # of living children Visit Details Expected Delivery Route/Plan Labor Preferences- CB/BF classes: [] labor support person: [] labor intervention preferences: [] pain management options preferred: [] cut cord/dad catch: [] : [] PP control planned: [] discussed possible routes of delivery and associated risks: [] special requests: [] Plans Covid status: declined Flu vaccine: declined Tdap vaccine: declined Rhogam: na LARC form signed: [] movement and labor precautions reviewed. Problem list reviewed and updated with the most current plan of care details and appropriate orders placed. Relevant counseling for the gestational age provided. Continue routine care and follow up unless otherwise noted in visit notes/problem list details OB Flowsheet Initial Weight: Not Recorded Date -?-?-?-?-?-?-?-?-?-?-?-?- EGA Weight BP Urine Prot -?-?-?-?-?-?-?-?-?-?-?-?- Glucose FHR FuHt Pres Dilation -?-?-?-?-?-?-?-?-?-?-?-?- Effaced St Visit Note 12/29/22 -?-?-?-?-?-?-?-?-?-?-?-?- 28w 6d 143 lb 2 oz 110/64 Nega tive -?-?-?-?-?-?-?-?-?-?-?-?- Negative 143 29 -?-?-?-?-?-?-?-?-?-?-?-?- MH-LENIN [place]. Doing well. No VB, LOF. Good FM. States has been easy . Nl 28 wk labs. ROR done, pending. 01/10/23 -?-?-?-?-?-?-?-?-?-?-?-?- 30w 4d 199 lb 4 oz 112/72 Nega tive -?-?-?-?-?-?-?-?-?-?-?-?- Negative 145 30 -?-?-?-?-?-?-?-?-?-?-?-?- SM- no vb lof go od fm no regular ctx discussed tdap 01/24/23 -?-?-?-?-?-?-?-?-?-?-?-?- 32w 4d 201 lb 105/68 Negative -?-?-?-?-?-?-?-?-?-?-?-?- Negative 124 33 -?-?-?-?-?-?-?-?-?-?-?-?- JV- no lof, vagi nal bleeding, or dec fm. tdap today. discussed classes for questions about nipple shape, etc. 02/08/23 -?-?-?-?-?-?-?-?-?-?-?-?- 34w 5d 204 lb 2 oz 109/72 Nega tive -?-?-?-?-?-?-?-?-?-?-?-?- Negative 135 35 -?-?-?-?-?-?-?-?-?-?-?-?- KW-no vb/lof/ctx . good fm. discussed 36 week appt. no concerns today 02/25/23 -?-?-?-?-?-?-?-?-?-?-?-?- 37w 1d 206 lb 4 oz 114/74 Nega tive -?-?-?-?-?-?-?-?-?-?-?-?- Negative 126 36 Cephalic -?-?-?-?-?-?-?-?-?-?-?-?- JV- pt declines exam, gbs collected. no lof, vaginal bleeding, or dec fm. 03/02/23 -?-?-?-?-?-?-?-?-?-?-?-?- 37w 6d 207 lb 2 oz 113/69 Nega tive -?-?-?-?-?-?-?-?-?-?-?-?- Negative 130 37 Cephalic -?-?-?-?-?-?-?-?-?-?-?-?- JV- declines exa m. no lof, vaginal bleeding, or dec fm 03/09/23 -?-?-?-?-?-?-?-?-?-?-?-?- 38w 6d 209 lb 8 oz 106/75 Nega tive -?-?-?-?-?-?-?-?-?-?-?-?- Negative 105 38 Cephalic -?-?-?-?-?-?-?-?-?-?-?-?- LC- declines exa ms. no lof/vb/ctx. decreased fm last night and today. NST LC- declines exams. no lof/v b/ctx. decreased fm last night and today. NST reactive with baseline change to 120s 03/17/23 -?-?-?-?-?-?-?-?-?-?-?-?- 40w 0d 211 lb 8 oz 113/75 Nega tive -?-?-?-?-?-?-?-?-?-?-?-?- Negative 115 40 Cephalic 1 -?-?-?-?-?-?-?-?-?-?-?-?- -- feb fm yesterday was WNL before no vb lof no reg ctx NST FHR Rate Baby A Baseline: 120 Variability:: Moderate Accelerations:: 15 x 15 Decelerations:: None NST Reactive:: Yes FHR Category:: Category I Uterine Activity:: irregular ROS Constitutional Constitutional: Reports systems reviewed and no addt'l complaints, except as documented Eyes Eyes: Denies change in vision ENT HEENT: Reports systems reviewed and no addt'l complaints, except as documented; Denies headache(s) Cardiovascular Cardiovascular: Reports systems reviewed and no addt'l complaints, except as documented; Denies chest pain or dyspnea Respiratory/Chest Respiratory/Chest: Reports systems reviewed and no addt'l complaints, except as documented Gastrointestinal Gastrointestinal: Reports systems reviewed and no addt'l complaints, except as documented; Denies abdominal pain Genitourinary Genitourinary: Reports systems reviewed and no addt'l complaints, except as documented, contractions Details: present (irregular) and movement Details: present; Denies dysuria or genital lesions Musculoskeletal Musculoskeletal: Reports systems reviewed and no addt'l complaints, except as documented Neurologic Neurologic: Reports systems reviewed and no addt'l complaints, except as documented Endocrine Endocrinology: Reports systems reviewed and no addt'l complaints, except as documented Vital Signs Vital Signs Vital Signs: 03/17/23 14:52 03/17/23 14:52 03/17/23 14:52 Temperature Temperature Source Temporal Pulse Rate 95 Blood Pressure 115/60 BP Systolic 115 BP Diastolic 60 Pulse Ox 03/17/23 14:54 03/17/23 14:54 03/17/23 14:52 Temperature 97.4 F L Temperature Source Pulse Rate 89 Blood Pressure BP Systolic BP Diastolic Pulse Ox 97 03/17/23 15:30 03/17/23 15:30 03/17/23 16:05 Temperature Temperature Source Pulse Rate 91 Blood Pressure 119/67 129/77 H BP Systolic 119 129 BP Diastolic 67 77 Pulse Ox 03/17/23 16:05 03/17/23 16:48 03/17/23 16:48 Temperature Temperature Source Pulse Rate 85 88 Blood Pressure 128/73 H BP Systolic 128 BP Diastolic 73 Pulse Ox 03/17/23 17:31 03/17/23 17:31 03/17/23 17:31 Temperature Temperature Source Temporal Pulse Rate 93 Blood Pressure 126/75 H BP Systolic 126 BP Diastolic 75 Pulse Ox 03/17/23 17:31 03/17/23 18:47 03/17/23 18:47 Temperature 97.7 F L Temperature Source Pulse Rate 86 Blood Pressure 128/77 H BP Systolic 128 BP Diastolic 77 Pulse Ox 03/17/23 19:43 03/17/23 19:43 03/17/23 19:48 Temperature Temperature Source Pulse Rate 83 80 Blood Pressure BP Systolic BP Diastolic Pulse Ox 100 03/17/23 19:48 03/17/23 19:54 03/17/23 19:54 Temperature Temperature Source Pulse Rate 86 Blood Pressure 135/74 H BP Systolic 135 BP Diastolic 74 Pulse Ox 99 03/17/23 19:53 03/17/23 19:59 03/17/23 19:59 Temperature Temperature Source Pulse Rate 90 Blood Pressure 140/81 H BP Systolic 140 BP Diastolic 81 Pulse Ox 98 03/17/23 20:01 03/17/23 20:01 03/17/23 20:04 Temperature Temperature Source Pulse Rate 86 Blood Pressure 125/71 H BP Systolic 125 BP Diastolic 71 Pulse Ox 100 03/17/23 20:04 03/17/23 20:06 03/17/23 20:06 Temperature Temperature Source Pulse Rate 80 87 Blood Pressure BP Systolic BP Diastolic Pulse Ox 96 03/17/23 20:09 03/17/23 20:09 03/17/23 20:11 Temperature Temperature Source Pulse Rate 88 90 Blood Pressure 122/71 H BP Systolic 122 BP Diastolic 71 Pulse Ox 03/17/23 20:11 03/17/23 20:14 03/17/23 20:14 Temperature Temperature Source Pulse Rate 86 Blood Pressure 120/67 BP Systolic 120 BP Diastolic 67 Pulse Ox 100 03/17/23 20:16 03/17/23 20:16 03/17/23 20:19 Temperature Temperature Source Pulse Rate 91 Blood Pressure 117/61 BP Systolic 117 BP Diastolic 61 Pulse Ox 100 03/17/23 20:19 03/17/23 20:21 03/17/23 20:21 Temperature Temperature Source Pulse Rate 83 84 Blood Pressure BP Systolic BP Diastolic Pulse Ox 100 03/17/23 20:23 03/17/23 20:23 03/17/23 20:24 Temperature Temperature Source Pulse Rate 79 Blood Pressure 122/60 H BP Systolic 122 BP Diastolic 60 Pulse Ox 85 03/17/23 20:24 03/17/23 20:26 03/17/23 20:26 Temperature Temperature Source Pulse Rate 93 94 Blood Pressure BP Systolic BP Diastolic Pulse Ox 100 03/17/23 20:28 03/17/23 20:28 03/17/23 20:29 Temperature Temperature Source Pulse Rate 77 Blood Pressure 101/55 L BP Systolic 101 BP Diastolic 55 Pulse Ox 92 03/17/23 20:29 03/17/23 20:31 03/17/23 20:31 Temperature Temperature Source Pulse Rate 78 79 Blood Pressure BP Systolic BP Diastolic Pulse Ox 100 03/17/23 20:35 03/17/23 20:35 03/17/23 20:36 Temperature Temperature Source Pulse Rate 75 81 Blood Pressure 99/51 L BP Systolic 99 BP Diastolic 51 Pulse Ox 03/17/23 20:36 03/17/23 20:40 03/17/23 20:40 Temperature Temperature Source Pulse Rate 76 Blood Pressure 98/52 L BP Systolic 98 BP Diastolic 52 Pulse Ox 100 03/17/23 20:41 03/17/23 20:41 03/17/23 20:44 Temperature Temperature Source Pulse Rate 78 Blood Pressure 102/59 L BP Systolic 102 BP Diastolic 59 Pulse Ox 100 03/17/23 20:44 03/17/23 20:46 03/17/23 20:46 Temperature Temperature Source Pulse Rate 78 80 Blood Pressure BP Systolic BP Diastolic Pulse Ox 100 03/17/23 20:50 03/17/23 20:50 03/17/23 20:51 Temperature Temperature Source Pulse Rate 88 80 Blood Pressure 113/55 L BP Systolic 113 BP Diastolic 55 Pulse Ox 03/17/23 20:51 03/17/23 20:55 03/17/23 20:55 Temperature Temperature Source Pulse Rate 109 H Blood Pressure 147/58 H BP Systolic 147 BP Diastolic 58 Pulse Ox 100 03/17/23 20:55 03/17/23 20:56 03/17/23 20:56 Temperature Temperature Source Pulse Rate 81 Blood Pressure BP Systolic BP Diastolic Pulse Ox 90 100 03/17/23 21:00 03/17/23 21:00 03/17/23 21:01 Temperature Temperature Source Pulse Rate 75 78 Blood Pressure 106/55 L BP Systolic 106 BP Diastolic 55 Pulse Ox 03/17/23 21:01 03/17/23 21:06 03/17/23 21:06 Temperature Temperature Source Pulse Rate 70 Blood Pressure 99/53 L BP Systolic 99 BP Diastolic 53 Pulse Ox 100 03/17/23 21:06 03/17/23 21:25 03/17/23 21:25 Temperature Temperature Source Pulse Rate 77 Blood Pressure 100/53 L BP Systolic 100 BP Diastolic 53 Pulse Ox 100 Weight Weight: 210 lb 4 oz Body Mass Index (BMI) 36.1 Physical Exam Const alert, oriented x3, no apparent distress and healthy appearing HEENT normocephalic and moist oral mucous membranes Head and Scalp: atraumatic Neck full ROM, no lymphadenopathy, supple and thyroid normal General: trachea midline Lymph Lymphatic: no lymphadenopathy noted Chest inspection of chest normal Resp normal respiratory effort Cardio regular rate GI normal to inspection, nondistended, normoactive bowel sounds, soft to palpation and non-tender Inspection: gravid external exam normal Manual OB Exam: estimated gestational size appropriate, presentation cephalic, dilated, effaced and station Extremity normal to inspection General Extremity: Negative for edema Skin no rashes or lesions noted Neuro no focal motor deficits and deep tendon reflexes 2+ bilaterally Motor Exam: strength 5/5 throughout and clonus absent Psych mental status grossly normal Labs Labs Labs: Blood Type O POSITIVE Antibody Screen NEGATIVE Hct 36.4 % (37-47) L Hgb 11.8 g/dL (12.0-15.0) L Syphilis Total Ab Non-reactive VZV IgG Antibody > 4000 index (Immune >165) Rubella IgG Antibody Reactive (Nonreactive) Hep Bs Antigen Non-Reactive (Nonreactive) Hepatitis C Antibody Non-Reactive (Nonreactive) HIV 1&2 Antibody Non-Reactive (Nonreactive) Glucose 1 Hr 50 gm 109 mg/dL (70-140) Assessment & Plan (1) Decreased movement: COMMENT: persistent recommend IOL (2) COVID-19 affecting in third trimester: COMMENT: Aspirin 81mg daily (3) Supervision of other normal : COMMENT: PRR G30 ORTIZ 03/17/23 Girl Sp:Aaron Blackman at 27 wk, ROR signed. GBS negative (4) Hypothyroidism: QUALIFIERS: Hypothyroidism type: acquired Qualified Code(s): E03.9 - Hypothyroidism, unspecified COMMENT: Check each trimester. Nl (5) : QUALIFIERS: Weeks of gestation: 40 weeks Qualified Code(s): Z3A.40 - 40 weeks gestation of COMMENT: declined genetic and carrier screen. Nl anatomy w/[place]. (6) HPV test positive: COMMENT: Neg paps. HPV + 18: 05/2022 colp per C Conroy:hpv changes only; do pap pp PLAN: Plan Patient presents IOL, plan management for with pit and fb. Pain management: plans epidural. GBS negative. Management of any complications: iol dec fm I have reviewed the [facility] and made any clinically relevant updates.
--- NOTE | 2023-03-17 21:30 | PCM.PN.BLA ---
Progress Note srom clear fluid, iupc placed, now 4-5 cm. pitocin decreased due to intermittent lates- resolved with position changes. continue to monitor.
[2023-03-17] MEDS: Lactated Ringers 1,000 ML 200 ML IV (22:22)
[2023-03-18] VITALS (67 sets, daily range): BP systolic 89–130; BP diastolic 50–72; PULSE 69–105; RESP 12–23; TEMP 36.2–37.3; O2SAT 82–100
[2023-03-18] MEDS: fentaNYL-bupivacaine (epidural) 100 ML BAG EPIDURAL ×3 (00:47→10:10)
[2023-03-18] MEDS: Phenol/Sodium Phenolate 180ML 3 SPRAY MUCOUS MEM (00:48)
[2023-03-18] MEDS: guaiFENesin Dm 10 ML UDC PO (00:48)
[2023-03-18] MEDS: Lactated Ringers 1,000 ML 200 ML IV ×2 (03:37→07:26)
[2023-03-18] MEDS: LACTATED RINGERS 500 ML 999 ML IV ×2 (04:46→09:44)
[2023-03-18] MEDS: Amnioinfusion- 0.9% NS 1,000 ML IV.SOLN. 1000 ML INTRA-UTER ×2 (05:28→10:15)
--- NOTE | 2023-03-18 06:17 | PN_ITS ---
Progress Note pit at 2 mU unable to increase due to intermittent decels overnight, inadequate contraction pattern. multiple position changes, IVF boluses, catheter replaced current tracing: FHT: 130 Moderate variability reactive intermittent early decelerations, intermittent late or variable category II tracing [place]: q 3-5 Contractions reviewed tracing abnormalities since last note: see above A/P: reveiwed with patient and nursing, need more pitocin to achieve adequate contraction pattern but it is difficult to meet criteria to increase pitocin. overall reassuring and does not meet criteris to warrant delivery at this time, positive accels and now moderate variabilty, continue exp management and will incrase pitocin when able
[2023-03-18] MEDS: Azithromycin 500 MG in Dextrose 5%-Water (250mL Bag) 250 ML 250 MG IV (10:34)
[2023-03-18] MEDS: Sodium Citrate/Citric Acid 30 ML UDC PO (10:40)
[2023-03-18] MEDS: Acetaminophen 500 MG Tablet PO (10:43)
[2023-03-18] MEDS: Cefazolin 2 GM in 0.9% Normal Saline (100mL Bag) 100 ML IV (10:50)
--- NOTE | 2023-03-18 10:53 | OP.PCM_ITS ---
Assessment & Plan (1) Category II heart rate tracing during labor and delivery: (2) Arrest of dilation, delivered, current hospitalization: (3) Decreased movement: COMMENT: persistent recommend IOL (4) COVID-19 affecting in third trimester: COMMENT: Aspirin 81mg daily (5) Supervision of other normal : COMMENT: PRR G30 ORTIZ 03/17/23 Girl Sp:Aaron PHELPS [place] at 27 wk, ROR signed. GBS negative (6) Hypothyroidism: QUALIFIERS: Hypothyroidism type: acquired Qualified Code(s): E03.9 - Hypothyroidism, unspecified COMMENT: Check each trimester. Nl (7) : QUALIFIERS: Weeks of gestation: 40 weeks Qualified Code(s): Z3A.40 - 40 weeks gestation of COMMENT: declined genetic and carrier screen. Nl anatomy w/[place]. (8) HPV test positive: COMMENT: Neg paps. 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 After induction of labor overnight with intermittent heart rate decelerations and having difficulty increasing the Pitocin due to this, patient was finally able to get in a regular contraction pattern however had no cervical change from 5 to 6 cm and then developed recurrent late decelerations therefore the decision was made to proceed with a primary low-transverse . Patient had been ruptured for 17 hours with only 2 cm of change and been on Pitocin for over 18 hours and only may change from 1 to 6 cm. Suspected CPD in addition to placental dysfunction was suspected. The patient was placed in the dorsal supine position with leftward tilt. Patient was prepped and draped in the normal sterile fashion. Pfannenstiel skin incision was made with the scalpel and carried through to the underlying layer of fascia with the scalpel. Fascia was nicked in the midline and the incision extended laterally. The rectus bellies were dissected off superiorly and inferiorly with out complication both sharply and bluntly. The peritoneum was entered digitally. The incision was stretched and a low transverse uterine incision was made with the scalpel. The 's head was delivered atraumatically followed by the anterior and posterior shoulders without complication the rest of the infant delivered. The cord was clamped and cut and the was handed off to awaiting nurse. The placenta was delivered spontaneously immediately following and was noted to be intact and have a three-vessel cord. The uterus was exteriorized cleared of all clots and debris, and the incision was closed in a double layer closure using #1 Monocryl. The ovaries and fallopian tubes were noted to be within normal limits. The uterus was returned to the maternal abdomen and gutters were cleared of all clots and debris. The peritoneum was closed with 3-0 Monocryl in a running fashion. Fascia was closed with 0 PDS in a running fashion. Subcutaneous tissue was copiously irrigated and the skin was closed with 3-0 Monocryl in a subcuticular fashion. Mepilex dressing was applied without complication. Patient was taken to recovery in stable condition. It was discussed with the patient that based on the clinical information obtained during this encounter, combined with her history, at this time I would recommend for future deliveries if further pregnancies are desired. Placental Delivery Description: Spontaneous Placenta Disposition: [facility] Cord Vessel Description: 3 Vessels (1 minute): 8 (5 minute): 9 Delayed Cord Clamping: Yes Complications Risks of Surgery Discussed w/Patient: Bleeding, Infection, Need for Future C-Sections and Injury to surrounding structure(s) including bowel and bladder Complications: none Admit VTE Documentation VTE Present on Admission: No VTE Mechan Device Prophylaxis: SCD's Procedures Urinary/Genital [id number]: [id number] Delivery [facility]
--- NOTE | 2023-03-18 11:37 | DCINST_ITS ---
Discharge Instructions Diet Discharge Diet: No restrictions Activity Discharge Activity: May Not Drive (for 2 weeks or while taking narcotic pain medications.), May Shower and May Take a Tub Bath (in 7 days) May shower in (days): 0 May resume sexual activity in: 4-6 weeks Weight Bearing Status: Full weight bearing Lifting Restrictions: 20 pounds Dressing / Incision Call your doctor if your incision/area has: Continuous Slow Oozing, Sudden Increased Bleeding, Increased Pain/ Swelling, Increased Redness and Foul Smelling Discharge Call your doctor if you observe: Fever of 101 or Higher and Using more than 1 pad per hour (for 2 hours) Suture Line Care: Avoid Pulling/Pushing and Avoid Pinching/Bending Cleanse incision/area with: Soap & Water and Keep Dressing Clean & Dry Follow Up Care Please Follow Up With: Krista Plasencia MD When: Call [phone] to make an appointment for an incision check in 1-2 weeks. Test Results: Test results from this visit will be discussed in further detail at your follow- up appointment, if applicable. Discharge Plan Admission Admit Date/Time: 03/17/23 13:35 Attending Provider: Krista Plasencia Primary Care Provider: Joseph Neville Discharge Orders/Prescriptions Prescriptions: New oxycodone-acetaminophen [Percocet] 5-325 mg tablet 1 tab PO Q6H PRN (Reason: pain) 7 Days Qty: 20 0RF naproxen [naproxen] 500 mg tablet 500 mg PO BID PRN PRN (Reason: Pain) Qty: 30 1RF No Action levothyroxine 25 MCG tablet 37.5 mcg PO DAILY Referrals / Follow Up: Joseph Neville MD [Primary Care Provider] - Disposition Disposition (needs filled in before D/C Order can be placed): Home, Self Care
[2023-03-18] MEDS: Ketorolac 30 MG/ML Syringe IV ×2 (12:10→18:03)
[2023-03-18] MEDS: Oxytocin 15 Units/NS 250ml 15 UNITS/250 ML IV.SOLN 83 UNITS IV (12:12)
[2023-03-18] MEDS: Lactated Ringers 1,000 ML 100 ML IV (15:55)
[2023-03-18] MEDS: Acetaminophen 500 MG Tablet 1000 MG PO ×2 (16:42→23:11)
--- NOTE | 2023-03-18 21:30 | NURSING ---
pt declined at this time due to legs still being numb
[2023-03-18] MEDS: Enoxaparin 40 MG/0.4 ML Syringe SC (23:11)
[2023-03-19] MEDS: Ketorolac 30 MG/ML Syringe IV ×2 (00:09→06:01)
[2023-03-19] MEDS: 0.9% Saline Lock 10 ML Syringe IV ×2 (00:10→06:02)
[2023-03-19 05:01] VITALS: BP 115/70; PULSE 97; RESP 16; TEMP 36.5; O2SAT 100
[2023-03-19] MEDS: Acetaminophen 500 MG Tablet 1000 MG PO ×4 (05:05→23:11)
[2023-03-19 05:10] LABS: Hematocrit 34.8 % (37-47); Hemoglobin 11.1 g/dL (12.0-15.0); Mean Corp Hgb Conc 31.9 g/dL (32-36); Mean Corpuscular Hgb 30.2 pg (27.0-32.0); Mean Corpuscular Volume 94.8 fL (81-99); Mean Platelet Vol. 9.3 fl (6.2-12.0); Platelet Count 172 K/mm3 (150-450); RBC Distribution Width CV 14.9 % (11.6-14.6); Red Blood Count 3.67 M/mm3 (4.2-5.4); White Blood Count 15.2 K/mm3 (4.4-11.0)
[2023-03-19] MEDS: Levothyroxine 25 MCG TABLET 37.5 MCG PO (06:01)
--- NOTE | 2023-03-19 07:03 | PCM.PN.OB ---
Subjective Subjective Patient doing well without complaints. Tolerating PO. Ambulating and voiding without difficulty. feeding well. Denies chest pain, shortness of breath, calf pain/swelling, fevers, chills, lightheadedness. Objective Data Objective Data Vital Signs: Vital Signs Temp Pulse Resp BP Pulse Ox O2 Del Method 97.7 F L 97 16 115/70 100 Room Air 03/19/23 05:01 03/19/23 05:01 03/19/23 05:01 03/19/23 05:01 03/19/23 05:01 03/19/23 05:01 Oxygen Delivery Method Room Air Weight: 210 lb 4 oz Body Mass Index (BMI) 36.1 Intake & Output: Intake and Output for Last 24 Hours 03/17/23 03/18/23 03/19/23 23:59 23:59 23:59 Intake Total 1800.61 / 1800.61 4945.53 / 4945.53 Output Total 4000 / 4000 400 / 400 Balance 1800.61 / 1800.61 945.53 / 945.53 -400 / -400 Lab / Micro Data 03/19/23 05:05 Labs: Laboratory Results - last 24 hr 03/19/23 05:05: WBC 15.2 H, RBC 3.67 L, Hgb 11.1 L, Hct 34.8 L, MCV 94.8, MCH 30.2, MCHC 31.9 L, RDW Std Deviation 52.0 H, RDW Coeff of Jennifer 14.9 H, Plt Count 172, MPV 9.3 ROS Constitutional Constitutional: Reports systems reviewed and no addt'l complaints, except as documented Cardiovascular Cardiovascular: Reports systems reviewed and no addt'l complaints, except as documented Respiratory/Chest Respiratory/Chest: Reports systems reviewed and no addt'l complaints, except as documented Gastrointestinal Gastrointestinal: Reports systems reviewed and no addt'l complaints, except as documented Physical Exam Const alert, oriented x3 and no apparent distress HEENT Head and Scalp: atraumatic Resp normal respiratory effort GI soft to palpation and non-tender Inspection: incision intact, healing well and drainage (none) Bimanual Exam - Vag & Uterus: uterus non-tender Uterus Palpation: uterus fundus firm (below Umbilicus) Assessment & Plan (1) delivery delivered: COMMENT: LTCS cat II tracing recurrent lates AOD 6 cm suspect CPD (2) Hypothyroidism: QUALIFIERS: Hypothyroidism type: acquired Qualified Code(s): E03.9 - Hypothyroidism, unspecified COMMENT: Check each trimester. Nl (3) HPV test positive: COMMENT: Neg paps. HPV + 18: 05/2022 colp per C Conroy:hpv changes only; do pap pp PLAN: Plan s/p LTCS PPD # 1 1. routine post care 2. breast feeding- support given 3. rh positive 4. rubella immune
[2023-03-19 10:12] VITALS: BP 116/67; PULSE 100; RESP 16; TEMP 36.6; O2SAT 95
[2023-03-19] MEDS: Senna/Docusate Sodium 1 Tablet PO (10:22)
[2023-03-19] MEDS: Naproxen 500 MG Tablet PO ×2 (11:46→20:12)
[2023-03-19 14:53] VITALS: BP 140/71; PULSE 81; RESP 16; TEMP 36.1
[2023-03-19] MEDS: Enoxaparin 40 MG/0.4 ML Syringe SC (23:10)
[2023-03-20 02:15] VITALS: BP 115/61; PULSE 84; RESP 16; TEMP 36.5; O2SAT 97
[2023-03-20] MEDS: Naproxen 500 MG Tablet PO (04:43)
[2023-03-20] MEDS: Acetaminophen 500 MG Tablet 1000 MG PO ×2 (04:44→10:37)
[2023-03-20] MEDS: Levothyroxine 25 MCG TABLET 37.5 MCG PO (06:17)
[2023-03-20] MEDS: Influenza Virus Vac Quad 23-24 60 MCG/0.5 ML SYRINGE IM (06:17)
--- NOTE | 2023-03-20 09:53 | PN.OBGYN_ITS ---
Subjective Subjective Patient doing well without complaints. Tolerating PO. Ambulating and voiding without difficulty. feeding well. Denies chest pain, shortness of breath, calf pain/swelling, fevers, chills, lightheadedness. Objective Data Objective Data Vital Signs: Vital Signs Temp Pulse Resp BP Pulse Ox O2 Del Method 97.7 F L 84 16 115/61 97 Room Air 03/20/23 02:15 03/20/23 02:15 03/20/23 02:15 03/20/23 02:15 03/20/23 02:15 03/20/23 02:15 Oxygen Delivery Method Room Air Weight: 210 lb 4 oz Body Mass Index (BMI) 36.1 Intake & Output: Intake and Output for Last 24 Hours 03/18/23 03/19/23 03/20/23 23:59 23:59 23:59 Intake Total 4945.53 / 4945.53 Output Total 4000 / 4000 500 / 500 Balance 945.53 / 945.53 -500 / -500 Lab / Micro Data 03/19/23 05:05 ROS Constitutional Constitutional: Reports systems reviewed and no addt'l complaints, except as documented Cardiovascular Cardiovascular: Reports systems reviewed and no addt'l complaints, except as documented Respiratory/Chest Respiratory/Chest: Reports systems reviewed and no addt'l complaints, except as documented Gastrointestinal Gastrointestinal: Reports systems reviewed and no addt'l complaints, except as documented Physical Exam Const alert, oriented x3 and no apparent distress HEENT Head and Scalp: atraumatic Resp normal respiratory effort GI soft to palpation and non-tender Inspection: incision intact, healing well and drainage (none) Bimanual Exam - Vag & Uterus: uterus non-tender Uterus Palpation: uterus fundus firm (below Umbilicus) Assessment & Plan (1) delivery delivered: COMMENT: LTCS SM cat II tracing recurrent lates AOD 6 cm suspect CPD (2) Hypothyroidism: QUALIFIERS: Hypothyroidism type: acquired Qualified Code(s): E03. 9 - Hypothyroidism, unspecified COMMENT: Check each trimester. Nl (3) HPV test positive: COMMENT: Neg paps. HPV + 18: 05/2022 colp per C Conroy:hpv changes only; do pap pp PLAN: Plan s/p LTCS PPD # 2 1. routine post care 2. breast feeding- support given 3. rh positive 4. rubella immune
[2023-03-20] MEDS: Senna/Docusate Sodium 1 Tablet PO (10:37)
[2023-03-20 10:40] VITALS: BP 119/74; PULSE 85; RESP 14; TEMP 36.2; O2SAT 99
--- NOTE | 2023-03-24 08:50 | NURSING ---
03/22/23 1600: Follow up questions asked by Addis,IBCLC,[employer]NER at follow up visit. Pt. reports no s+s since discharge. No concerns with discharge instructions or care. being seen for feeding assessment. Denies questions or concerns at this time. Pt. reports feeling very taken care of during hospitalization and loved all her nurses.
== END 2023-03-20 11:00 | disposition home or self-care (01) | DRG 788 ==
PROVIDERS: Admitting Provider Obstetrics & Gynecology; PCP Family Medicine; Visit Provider Obstetrics & Gynecology
DX: O76 Abnormality in fetal heart rate and rhythm complicating labor and delivery (principal); E03.9 Hypothyroidism, unspecified; O36.8130 Decreased fetal movements, third trimester, not applicable or unspecified; O99.284 Endocrine, nutritional and metabolic diseases complicating childbirth; Z37.0 Single live birth; Z3A.40 40 weeks gestation of pregnancy; O62.0 Primary inadequate contractions; Z86.16 Personal history of COVID-19
CPT/HCPCS: 59025; 59050; 85025; 85027; 86780; 86850; 86900; 86901; 99221; J7030; J7120; 90686; A4216; G0378

== ENCOUNTER → 2024-05-01 | Outpatient (CLI) | payer BC, SELFPAY ==
[2024-05-01 17:29] LABS: Free T3 2.4 pg/mL (2.18-3.98); T4 Free Direct 0.82 ng/dL (0.76-1.46)
[2024-05-05 14:08] LABS: HPV APTIMA, High Risk Negative (Negative)
== END | disposition home or self-care (01) ==
PROVIDERS: PCP Family Medicine; Referring Provider Obstetrics & Gynecology; Visit Provider Obstetrics & Gynecology
DX: E03.9 Hypothyroidism, unspecified (principal); Z13.29 Encounter for screening for other suspected endocrine disorder; Z12.4 Encounter for screening for malignant neoplasm of cervix
CPT/HCPCS: 36415; 84439; 84443; 84481; 87624; 88175; G0145

== ENCOUNTER → 2025-03-05 | Outpatient (CLI) | payer BC, SELFPAY ==
[2025-03-05 15:59] LABS: Hematocrit 39.9 % (37-47); Hemoglobin 13.8 g/dL (12.0-15.0); Immature Granulocytes Count 0.070 X10^3/uL (0.0-0.0); Mean Corp Hgb Conc 34.6 g/dL (32-36); Mean Corpuscular Volume 89.5 fL (81-99); Mean Platelet Vol. 9.5 fl (6.2-12.0); NRBC Flagged by Analyzer 0 % (0-5); Platelet Count 275 K/mm3 (150-450); RBC Distribution Width CV 12.8 % (11.6-14.6); RBC Distribution Width SD 41.9 fl (35.1-43.9); Red Blood Count 4.46 M/mm3 (4.2-5.4); White Blood Count 11.1 K/mm3 (4.4-11.0)
[2025-03-05 16:58] LABS: HIV Nonreactive (Nonreactive); Hepatitis B Surface Antigen Nonreactive (Nonreactive); Hepatitis C Antibody Nonreactive (Nonreactive); Syphilis Antibodies Nonreactive (Nonreactive)
[2025-03-07 21:07] LABS: Chlamydia By Nucleic Acid AMP Negative (Negative); Gonococcus By Nucleic Acid AMP Negative (Negative)
== END | disposition home or self-care (01) ==
PROVIDERS: PCP Family Medicine; Referring Provider Student in an Organized Health Care Education/Training Program; Visit Provider Student in an Organized Health Care Education/Training Program
DX: O09.90 Supervision of high risk pregnancy, unspecified, unspecified trimester (principal); Z3A.00 Weeks of gestation of pregnancy not specified; E03.9 Hypothyroidism, unspecified
CPT/HCPCS: 36415; 84439; 84443; 85025; 86703; 86762; 86780; 86803; 86850; 86900; 86901; 87086; 87088; 87340; 87491; 87591